=== PATIENT | female | born 1945 | race Caucasian/White ===

== ENCOUNTER 2017-10-01 11:23 | Observation (INO) | payer MEDICARE ==
[~2017-10-01] VITALS: Ht 154.9 cm; Wt 39.9 kg
[~2017-10-01 11:23] MED LIST: ACYCLOVIR 400400 MG PO; AZITHROMYCIN 2250 MG PO; BYSTOLIC 5 MG5 M1 PO; BYSTOLIC10 MG PO; CALCIUM 500 +1 EAC4 PO; CARDIZEM CD240 MG PO; HYDRALAZINE 2525 MG; HYDROXYZINE HCL25 M2 GT; IBUPROFEN 800800 M1 PO; LIDOCAINE 22 %/30 GM TOP; MIACALCIN3.7 ML; MOBIC7.5 M1 PO; MUCINEX600 MG PO; ONDANSETRON HCL4 M2 PO; PAXIL10 MG; PREDNISONE 20 M20 M1 PO; PREDNISONE50 MG PO; PROAIR HFA8.5 GM INH; SINGULAIR 10 MG10 M1 PO; SPIRONOLACT/HCT1 TA1 PO; SYNTHROID25 MC1 PO; TYLENOL W/CODEI1 TA2 PO; ULTRAM50 MG PO; VALIUM2 MG PO; WELLBUTRIN 100100 MG; ZOFRAN4 MG PO; ZPAK PO
[2017-10-01 11:29] VITALS: BP 152/78
[2017-10-01 11:55] LABS: ABSOLUTE EOSINOPHILS 0.1 thou/uL (0.0-0.7); ABSOLUTE LYMPHOCYTES 1.4 thou/uL (0.8-5.3); ABSOLUTE MONOCYTES 0.4 thou/uL (0.0-1.2); ABSOLUTE NEUTROPHILS 3.3 thou/uL (1.6-8.1); BASOPHILS 0.2 %; EOSINOPHILS 1.1 %; HEMATOCRIT 43.2 % (37.0-47.0); HEMOGLOBIN 14.7 gm/dL (12.0-15.0); LYMPHOCYTES 26.2 %; MCH 31.4 pg (26.0-34.0); MCV 92.3 fL (80.0-100.0); MONOCYTES 8.4 %; MPV 8.5 fl. (7.2-11.1); NUCLEATED RBCS 0 /100WBC; PLATELET COUNT* 230 thou/uL (150-400); POLYS 64.1 %; RBC 4.68 mil/uL (4.20-5.00); RDW-CV 13.5 % (10.5-14.5); WBC 5.2 thou/uL (4.0-11.0)
[2017-10-01 12:00] LABS: ANION GAP 7 mmol/L (7-16); BUN 7 mg/dL (7-18); CALCIUM 9.1 mg/dL (8.5-10.1); CHLORIDE 102 mmol/L (98-107); CO2 28 mmol/L (21-32); CREATININE 0.7 mg/dL (0.6-1.3); GLUCOSE 93 mg/dL (70-99); POTASSIUM 3.7 mmol/L (3.5-5.1); SODIUM 137 mmol/L (136-145)
[2017-10-01 12:09] LABS: APTT 27.3 Seconds (25.0-31.3); PROTIME 9.6 Seconds (9.20-11.50)
[2017-10-01 12:11] LABS: ALBUMIN 3.6 g/dL (3.4-5.0); ALKALINE PHOSPHATASE 99 U/L (46-116); NT-PRO BRAIN NAT PEPTIDE 49 pg/mL (<300); SGOT 20 U/L (15-37); SGPT 18 U/L (30-65); TOTAL BILIRUBIN 0.6 mg/dL (<0.1-1.0); TOTAL PROTEIN 6.7 g/dL (6.4-8.2); TROPONIN-I LEVEL <0.06 ng/mL (<0.06)
[2017-10-01] MEDS ORDERED: BEVESPI AEROS10.7 GM INH (12:33)
[2017-10-01 14:08] VITALS: BP 130/66
[2017-10-01 15:00] VITALS: BP 120/66
--- NOTE | 2017-10-01 16:05 | EKG ---
[place] [address] ELECTROCARDIOGRAM REPORT Name: KATE ANTONY Room: [address] ADM IN [facility]#: [id number] Admission: 10/01/17 Attend Phys: Lea Gonzalez MD Discharge: Date of : 41 Report #: [id number] THIS REPORT FOR: //name// [facility] ED Test Date: 2017-10-01 Test Time: 11:31:51 Pat Name: KATE ANTONY Department: Room: [facility] Gender: F Shipping/Receiving Manager: : 1945 Requested By: Dom Corley Order Number: [id number] MD: Bayron Calhoun Measurements Intervals [place] Rate: 76 P: 82 VT: 122 QRS: 99 QRSD: 142 T: 59 QT: 357 QTc: 402 Interpretive Statements Sinus tachycardia Ventricular trigeminy LAE, consider biatrial enlargement RBBB and LPFB Compared to ECG 05/21/2017 11:00:52 Ventricular premature complex(es) now present Electronically Signed On 10-01-2017 16:05:14 CDT by Bayron Calhoun [email or web address] <ELECTRONICALLY SIGNED> By: Bayron Calhoun MD, [facility] 10/01/17 1605 1131 1131 Bayron Calhoun MD, [facility] /EPI
--- NOTE | 2017-10-01 16:43 | 2DMMODE ---
[place] [address] 2 D/M-MODE ECHOCARDIOGRAM Name: KATE ANTONY Room: [address] IN [facility]#: [id number] Admission: 10/01/17 Attend Phys: Lea Gonzalez, Discharge: Date of : 41 Date of Service: 10/01/17 1643 Report #: [id number] THIS REPORT FOR: //name// APPROVED REPORT Study performed: 10/01/2017 13:57:44 EXAM: Comprehensive 2D, Doppler, and color-flow Echocardiogram Patient Location: In-Patient Room #: er Status: routine BSA: 1.33 HR: 82 bpm BP: 146/82 mmHg Rhythm: NSR Other Information Study Quality: Good Indications Bradycardia 2D Dimensions LVEF(%): 77.75 (>50%) IVSd: 9.71 (7-11mm) LVOT Diam: 19.39 (18-24mm) LVDd: 40.70 mm PWd: 8.57 (7-11mm) Ascending Ao: 27.64 (22-36mm) LVDs: 22.01 (25-40mm) Aortic Root: 34.16 mm Zepeda's LVEF: 77.75 % Volumes Left Atrial Volume (Systole) LA ESV Index: 25.10 mL/m2 Aortic Valve AoV Peak Mike.: 1.41 m/s AO Peak Gr.: 7.90 mmHg LVOT Max P.51 mmHg AO Mean Gr.: 3.37 mmHg LVOT Mean P.28 mmHg LVOT Max V: 1.17 m/s AO V2 VTI: 25.74 cm LVOT Mean V: 0.71 m/s JOSEPHINE (VTI): 2.59 cm2 LVOT V1 VTI: 22.56 cm Mitral Valve E/A Ratio: 0.76 [place] [address] 2 D/M-MODE ECHOCARDIOGRAM Name: KATE ANTONY Room: [address] IN [facility]#: [id number] Admission: 10/01/17 Attend Phys: Lea Gonzalez, Discharge: Date of : 41 Date of Service: 10/01/17 1643 Report #: [id number] MV Decel. Time: 159.99 ms MV E Max Mike.: 0.82 m/s MV PHT: 46.40 ms MVA (PHT): 4.74 cm2 TDI E/Lateral E': 8.20 E/Medial E': 8.20 Medial E' Mike.: 0.10 m/s Lateral E' Mike.: 0.10 m/s Pulmonary Valve PV Peak Mike.: 0.82 m/s PV Peak Gr.: 2.68 mmHg Tricuspid Valve TR Peak Gr.: 26.60 mmHg RVSP: 31.00 mmHg Left Ventricle The left ventricle is normal size. There is normal LV segmental wall motion. There is normal left ventricular wall thickness. Left ventricular systolic function is normal. The left ventricular ejection fraction is within the normal range. LVEF is 60-65%. Grade I - abnormal relaxation pattern. Right Ventricle The right ventricle is normal size. The right ventricular systolic function is normal. Atria The left atrium size is normal. The right atrium size is normal Aortic Valve Mild aortic valve sclerosis. No aortic regurgitation is present. There is no aortic valvular stenosis. Mitral Valve The mitral valve is normal in structure. Trace mitral regurgitation. No evidence of mitral valve stenosis. Tricuspid Valve The tricuspid valve is normal in structure. Trace tricuspid regurgitation. The RVSP is 30-35 mmHg. Pulmonic Valve The pulmonary valve is normal in structure. There is no pulmonic [place] [address] 2 D/M-MODE ECHOCARDIOGRAM Name: KATE ANTONY Room: [address] IN [facility]#: [id number] Admission: 10/01/17 Attend Phys: Lea Gonzalez, Discharge: Date of : 41 Date of Service: 10/01/17 1643 Report #: [id number] Great Vessels The aortic root is normal in size. IVC is normal in size and collapses with >50% inspiration Pericardium There is no pericardial effusion. <Conclusion> The left ventricle is normal size. There is normal left ventricular wall thickness. Left ventricular systolic function is normal. The left ventricular ejection fraction is within the normal range. LVEF is 60-65%. Grade I - abnormal relaxation pattern. The right ventricle is normal size. The left atrium size is normal. Mild aortic valve sclerosis. No aortic regurgitation is present. There is no aortic valvular stenosis. The mitral valve is normal in structure. Trace mitral regurgitation. The tricuspid valve is normal in structure. Trace tricuspid regurgitation. The RVSP is 30-35 mmHg. IVC is normal in size and collapses with >50% inspiration There is no pericardial effusion. There is normal LV segmental wall motion. <ELECTRONICALLY SIGNED> By: Bayron Calhoun MD, FACC 10/01/17 164 42 42 Bayron Calhoun MD, FACC /INF
--- NOTE | 2017-10-01 17:52 | NUR ---
RECEIVED PATIENT FROM ER 1500. PT IS ALERT AND ORIENTED X4. VSS. TRACK GRINDER TRACING SR. PATIENT DENIES SOA UPON ASSESSMENT. O2 SAT 93% ON ROOM AIR. UP INDEPENDENTLY IN ROOM WITH BATHROOM PRIVILEDGES. GAIT IS STEADY. ADMISSION ASSESSMENT AND HISTORY COMPLETED. HOME MEDICATIONS RECONCILED AND RESUMED PER DR SULLIVAN. PLANNING FOR NPO AFTER MIDNIGHT AND CARDIAC STRESS TEST TOMORROW PER CARDIOLOGY. PATIENT UP TO DATE ON PLAN OF CARE AND IS AGREEABLE. WILL CONTINUE TO MONITOR.
[2017-10-01 20:00] VITALS: BP 111/62
--- NOTE | 2017-10-01 20:00 | NUR ---
RECEIVED REPORT AND ASSUMED CARE OF PT, ASSESSMENT COMPLETED. DENIES SOB OR CHEST PAIN AT THIS TIME. TELEMETRY ON SHOWING SR TO ST. PT CONCERNED ABOUT STRESS INCONT WITH COUGHING, PADS PROVIDED. WILL CONT TO MONITOR AND ASSIST NEEDED.
[2017-10-02] VITALS: BP 93/42
[2017-10-02 04:00] VITALS: BP 104/49
[2017-10-02 04:53] LABS: HEMATOCRIT 37.7 % (37.0-47.0); HEMOGLOBIN 12.8 gm/dL (12.0-15.0); MCH 31.4 pg (26.0-34.0); MCHC 33.9 g/dL (28.0-37.0); MCV 92.6 fL (80.0-100.0); MPV 8.7 fl. (7.2-11.1); RBC 4.07 mil/uL (4.20-5.00); RDW-CV 13.4 % (10.5-14.5); WBC 4.4 thou/uL (4.0-11.0)
[2017-10-02 05:22] LABS: CREATININE 0.7 mg/dL (0.6-1.3); MAGNESIUM 1.8 mg/dL (1.8-2.4); POTASSIUM 3.5 mmol/L (3.5-5.1)
--- NOTE | 2017-10-02 05:43 | NUR ---
SLEPT WELL TONIGHT. NPO SINCE SC FOR STRESS TEST THIS AM. DENIES ANY CHEST PAIN OR SOB. ASSESSMENT UNCHANGED. TELEMETRY SHOWING SR. HS GOALS OF REST AND SAFETY OBTAINED. HOURLY ROUNDING OBSERVED.
[2017-10-02 08:06] VITALS: BP 115/55
[2017-10-02] MEDS ORDERED: DOXYCYCLINE 10100 MG PO (09:01)
[2017-10-02] MEDS ORDERED: CYCLOBENZAPRINE5 MG PO (09:08)
--- NOTE | 2017-10-02 09:48 | NUR ---
ASSUMED CARE OF PT THIS AM AROUND 07- [employer] [facility], TRACING SR- UPON ASSESSMENT PT NOTED TO BE RESTING IN BED, WATCHING TV- PT A&O X4- CONTINENT OF BOWEL AND BLADDER- UP AD-MOOSE IN ROOM WITH STEADY GAIT NOTED- LCTA, RESP EVEN AND UN-LABORED- VSS, O2 SAT 95% ON RA- ABDOMEN SOFT/FLAT/NON-TENDER, BS X4 QUADS- LAST BM REPORTED 10/01/17- IV NOTED TO RIGHT AC INTACT AND SL- PT CURRENTLY NPO FOR PLANNED STRESS TEST THIS AM- TROPS REMAIN NEGATIVE- PT DENIES ANY C/O PAIN/DISCOMFORT AT THIS TIME- CALL LIGHT AND PERSONAL BELONGINGS WITH IN REACH- HOURLY ROUNDS IN PLACE R/T SAFETY/NEEDS- ALL NEEDS MET AT THIS TIME-WCTM
[2017-10-02 11:39] VITALS: BP 115/55
--- NOTE | 2017-10-02 14:44 | NUR ---
RECIEVED PHONE CALL FROM THIS SHIFT STATING THAT STRESS TEST WAS NEGATIVE- L.CASE, SUPERVISOR FIREWORKS ASSEMBLY NOTIFIED AND STATES PT IS ABLE TO PHILIP D/C, WITH HOLTER MONITOR ARRANGED FOR HOME X 30 DAYS- PT UPDATED ON PLAN AND GOOD TO BE D/C'D TO HOME- IV TO RIGHT SC D/C'D ALONG WITH SIDE SEAM MACHINE OPERATOR THIS SHIFT PRIOR TO D/C- D/C TEACHING/EDUCATION GIVEN TO PT PRIOR TO D/C, WITH ALL QUESTIONS AND CONCERNS ADDRESSED- WRITTEN EDUCATION ALONG WITH SCRIPTS GIVEN TO PT PRIOR TO D/C- SCHEDULED FOLLOW UP WITH DATE AND TIME COMMUNICATED TO PT WITH CARD GIVEN, PT VERBALIZES UNDERSTANDING- HOLTOR MONITOR NEED COMMUNICATED THAT IT WOULD BE DELIVERED VIA MAIL WITH INSTRUCTIONS TO FOLLOW, PT VERBALIZES UNDERSTANDING- BELONGINGS PACKED AND ACCOUNTED FOR PER PT-PT FAUSTINOY RESTING IN BED SIDE CHAIR WAITING ON SISTER TO HEATER OPERATOR- ALL NEEDS MET AT THIS TIME-WCTM
--- NOTE | 2017-10-24 17:15 | CARDNUC ---
[place] [address] CARDIAC NUCLEAR IMAGING REPORT Name: KATE ANTONY Room: [address] Harish#: [id number] Admission: 10/01/17 Attend Phys: Lea Gonzalez, Discharge: 10/02/17 Date of : 41 Date of Service: 10/24/17 1715 Report #: [id number] THIS REPORT FOR: //name// ADDENDUM APPROVED REPORT Study performed: 10/01/2017 15:04:00 Exam: Nuclear Stress Test Indication: chest pain ,dyspnea Patient Location: In-Patient Room #: 201 Stress Tech: Gemma Summers Stress Nurse: Lesley Beck RN NM Tech:ERIKA Harrison Ht: 5 ft 1 in Wt: 88 lbs BSA: 1.33 m2 BMI: 16.6 Medical History Medical History: cardiac ablation for psvt, a fib with rvr, Medications: diltiazem, enoxaparin, aspirin 325 Allergies: baclofen, levaquin, morphine,phenothiazine, compazine, sulfa, spiriva,stadol, vicodin Cardiac Risk Factors: age, hyperlipidemia, htn, pvd, tobacco, family hx Previous Cardiac Procedures: heart cath, ablation Exercise History: Physically active NM EXAM: Myocardial Perfusion REST/STRESS Imaging Protocol: Rest Tc-99m/Stress Tc-99m 1 day Resting Data Rest SPECT myocardial perfusion imaging was performed in supine position 30 minutes following the intravenous injection of 11.9 mCi of Tc-99m Sestamibi. Time of rest injection: 1005 Time of rest imagin The images were gated to evaluate regional wall motion and calculate left ventricular ejection fraction. Administration Route: IV Pharmacologic Stress Pharmacologic stress test was performed by injecting Regadenoson 0.4 mg IV push followed by the intravenous injection of 33[place]3 [place] [address] CARDIAC NUCLEAR IMAGING REPORT Name: KATE ANTONY Room: [address] [facility]#: [id number] Admission: 10/01/17 Attend Phys: Lea Gonzalez, Discharge: 10/02/17 Date of : 41 Date of Service: 10/24/17 1715 Report #: [id number] Tc-99m Sestamibi. Time of stress injection: 1150 Time of stress imagin Administration Route: IV Gated Stress SPECT was performed 40 minutes after stress injection. The images were gated to evaluate regional wall motion and calculate left ventricular ejection fraction. Prone imaging was performed. Exercise Stress At peak stress, the patient was injected intravenously with 33.3mCi of Tc-99m Sestamibi. Study Quality Study: Good Artifact: Moderate Breast artifact Lung Uptake: Normal Study Data At rest, the left ventricular ejection fraction was 75%.. Post stress, the left ventricular ejection was 78%.. SSS: 0 SRS: 0 SDS: 0 TID = 1.18. Perfusion There is a moderate sized, mild intensity fixed anterior and anterolateral defect seen in SPECT rest and post-stress imaging datasets. Normal perfusion is seen in all other segments. Prone images show a relatively normal perfusion in all segments.There is a corresponding prominent breast shadow on rotating images. Images were reviewed using BT Imaging. Wall Motion normal Nuclear Conclusion ECG Findings: non-diagnostic Clinical Findings: negative for ischemia Nuclear Findings: negative for ischemia Exercise Capacity: normal Left Ventricular Function: normal Risk Study: low Normal [place] [address] CARDIAC NUCLEAR IMAGING REPORT Name: KATE ANTONY [address] [id number] Admission: 10/01/17 Attend Phys: Lea Gonzalez, Discharge: 10/02/17 Date of : 41 Date of Service: 10/24/17 1715 Report #: [id number] Interpreted by: amita Electronically Approved: amita Stress Test Details Stress Test: Pharmacologic stress was paired with low level exercise. Reason for pharmacologic stress test: physical limitation. HR Resting HR: 81 bpm Max Heart Rate (APMHR): 146 bpm Max HR Achieved: 126 bpm Target HR (85% APMHR): 124 bpm % of APMHR: 86 Recovery HR: 103 bpm BP Resting BP: 135/81 mmHg Max BP: 198/78 mmHg BP response to stress: Normal blood pressure response to stress. ECG Resting ECG: Sinus Rhythm RBBB Stress ECG: Sinus Rhythm ST Change: Normal Recovery ECG: rbbb Clinical Reason for Termination: Completed protocol Stress Symptoms: None Exercise duration: 0 min sec Exercise capacity: 1 METs Stress ECG Conclusion nondiag ecg <Conclusion> nondiag ecg <ELECTRONICALLY SIGNED> By: Justin Garcia MD, FACC 10/24/17 1715 1715 1715 Justin Garcia MD, FACC /INF
== END 2017-10-02 15:05 | disposition home or self-care (01) ==
LOC: M.ERS 11:23 → M.2W 12:55 → M.TBA-ER 12:55 → M.2W 14:41
PROVIDERS: Emergency Medicine Emergency Medical Services; ADMIT Internal Medicine
DX: R07.9 Chest pain, unspecified (principal); J18.9 Pneumonia, unspecified organism; J96.21 Acute and chronic respiratory failure with hypoxia; J44.0 Chronic obstructive pulmonary disease with (acute) lower respiratory infection; R00.1 Bradycardia, unspecified; F17.210 Nicotine dependence, cigarettes, uncomplicated; Z86.73 Personal history of transient ischemic attack (TIA), and cerebral infarction without residual deficits; Z98.890 Other specified postprocedural states

== ENCOUNTER → 2017-12-16 | Outpatient (CLI) | payer MEDICARE ==
[~2017-12-16] MED LIST changes: +BEVESPI AEROS10.7 GM INH; +CYCLOBENZAPRINE5 MG PO; +DOXYCYCLINE 10100 MG PO
== END ==
LOC: M.ULTRA 10:28
DX: I70.8 Atherosclerosis of other arteries (principal); I63.429 Cerebral infarction due to embolism of unspecified anterior cerebral artery; G45.9 Transient cerebral ischemic attack, unspecified; R55 Syncope and collapse

== ENCOUNTER → 2017-12-18 | Outpatient (CLI) | payer MEDICARE ==
[2017-12-18 09:56] LABS: ALBUMIN 3.5 g/dL (3.4-5.0); ALKALINE PHOSPHATASE 90 U/L (46-116); ANION GAP 8 mmol/L (7-16); BUN 6 mg/dL (7-18); CALCIUM 8.8 mg/dL (8.5-10.1); CHLORIDE 104 mmol/L (98-107); CHOLESTEROL 198 mg/dL (<200); CO2 30 mmol/L (21-32); CREATININE 0.6 mg/dL (0.6-1.3); GLUCOSE 93 mg/dL (70-99); HDL CHOLESTEROL 68 mg/dL (>40); LDL CHOLESTEROL 118 mg/dL (<100); POTASSIUM 3.5 mmol/L (3.5-5.1); SERUM ASSESSMENT Clear; SGOT 17 U/L (15-37); SGPT 17 U/L (30-65); SODIUM 142 mmol/L (136-145); TC:HDL 2.9 Ratio (Not establshd); TOTAL BILIRUBIN 0.5 mg/dL (<0.1-1.0); TOTAL PROTEIN 6.6 g/dL (6.4-8.2); TRIGLYCERIDE 62 mg/dL (<150); VLDL 12 mg/dL (<40)
== END ==
LOC: M.LAB 08:55
PROVIDERS: Nurse Practitioner
DX: I48.0 Paroxysmal atrial fibrillation (principal); E78.4 Other hyperlipidemia; Z72.0 Tobacco use

== ENCOUNTER 2018-08-27 23:17 | Inpatient (IN) | payer MEDICARE ==
[~2018-08-27] VITALS: Ht 154.9 cm; Wt 74.4 kg
--- NOTE | ~2018-08-27 | PROC ---
[address] [address] PROCEDURE REPORT Name: KATE ANTONY Room: [address] IN .R.#: [id number] Admission: 08/28/18 Attend Phys: Lea Gonzalez MD Discharge: Date of : 41 Report #: [id number] THIS REPORT FOR: //name// For GI report, please see the Provation report in Perceptive 7 content. By: [id number] Records Staff OJSSE /ROLF
[2018-08-27] MEDS ORDERED: XARELTO20 MG PO (23:29)
[2018-08-27] MEDS ORDERED: FLECAINIDE ACET50 M1 PO (23:29)
[2018-08-27 23:31] VITALS: BP 139/67
[2018-08-27 23:48] LABS: URINE BILIRUBIN NEGATIVE (Negative); URINE BLOOD NEGATIVE (Negative); URINE CLARITY CLEAR; URINE COLOR YELLOW; URINE GLUCOSE-RANDOM NEGATIVE (Negative); URINE KETONES NEGATIVE (Negative); URINE LEUKOCYTES-REFLEX NEGATIVE (Negative); URINE NITRITE-REFLEX NEGATIVE (Negative); URINE PROTEIN NEGATIVE (Negative); URINE UROBILINOGEN 0.2 E.U./dl (0.2-1.0)
[2018-08-28] VITALS (7 sets, daily range): BP systolic 94–122; BP diastolic 38–57
[2018-08-28 00:01] LABS: ABSOLUTE BASOPHILS 0.1 thou/uL (0.0-0.2); ABSOLUTE EOSINOPHILS 0.1 thou/uL (0.0-0.7); ABSOLUTE LYMPHOCYTES 1.5 thou/uL (0.8-5.3); ABSOLUTE MONOCYTES 0.8 thou/uL (0.0-1.2); ABSOLUTE NEUTROPHILS 7.8 thou/uL (1.6-8.1); BASOPHILS 0.7 %; EOSINOPHILS 0.9 %; HEMATOCRIT 24.4 % (37.0-47.0); HEMOGLOBIN 7.8 gm/dL (12.0-15.0); LYMPHOCYTES 14.8 %; MCH 23.2 pg (26.0-34.0); MCHC 32.2 g/dL (28.0-37.0); MONOCYTES 7.5 %; MPV 6.8 fl. (7.2-11.1); NUCLEATED RBCS 0 /100WBC; PLATELET COUNT* 512 thou/uL (150-400); POLYS 76.1 %; RBC 3.39 mil/uL (4.20-5.00); RDW-CV 18.1 % (10.5-14.5); WBC 10.3 thou/uL (4.0-11.0)
[2018-08-28 00:06] LABS: INR 1.1; PROTIME 11.4 Seconds (9.20-11.50)
[2018-08-28 00:24] LABS: ALBUMIN 3.4 g/dL (3.4-5.0); ALKALINE PHOSPHATASE 100 U/L (46-116); ANION GAP 6 mmol/L (7-16); BUN 10 mg/dL (7-18); CALCIUM 8.6 mg/dL (8.5-10.1); CHLORIDE 95 mmol/L (98-107); CO2 30 mmol/L (21-32); CREATININE 0.6 mg/dL (0.6-1.3); GLUCOSE 104 mg/dL (70-99); LIPASE 235 U/L (73-393); NT-PRO BRAIN NAT PEPTIDE 192 pg/mL (<300); POTASSIUM 3.3 mmol/L (3.5-5.1); SGOT 10 U/L (15-37); SGPT 15 U/L (30-65); SODIUM 131 mmol/L (136-145); TOTAL BILIRUBIN 0.2 mg/dL (<0.1-1.0); TOTAL PROTEIN 6.3 g/dL (6.4-8.2); TROPONIN-I LEVEL <0.06 ng/mL (<0.06)
[2018-08-28 02:53] LABS: % SATURATION 2 % (20-39); IRON 9 ug/dL (50-175)
--- NOTE | 2018-08-28 04:44 | NUR ---
pt admitted to unit with dyspnea and anemia. pt is alert and oriented. pt is on 2 liters o2 by nasal cannula. pt spo2, 99%. breathing tx ordered q4 prn for shortness of air. pt up ad darlene. no wounds noted. pt hgb 7.8, pt has questions on if receiving blood transfusion tonight, told pt none ordered at this time. pt has lt fa iv saline locked. pt regular diet with secondary diet of vegetarian. fall risk precautions in place. hourly rounding completed. will continue to monitor.
[2018-08-28 09:12] LABS: HEMATOCRIT 24.4 % (37.0-47.0); HEMOGLOBIN 7.7 gm/dL (12.0-15.0); MCH 22.6 pg (26.0-34.0); MCHC 31.5 g/dL (28.0-37.0); MCV 71.8 fL (80.0-100.0); RBC 3.4 mil/uL (4.20-5.00); RDW-CV 18.5 % (10.5-14.5); WBC 6.2 thou/uL (4.0-11.0)
[2018-08-28 09:13] LABS: MPV 7.2 fl. (7.2-11.1)
[2018-08-28 09:16] LABS: CALCIUM 8.5 mg/dL (8.5-10.1); CREATININE 0.6 mg/dL (0.6-1.3)
[2018-08-28 09:22] LABS: POTASSIUM 2.9 mmol/L (3.5-5.1)
--- NOTE | 2018-08-28 14:14 | NUR ---
SW met with pt to complete initial assessment, introduce self, and SW role. Pt alert, oriented, pleasant. Pt lives with her sister. Pt has been independent and continues to work. Pt did not express any dc needs at this time. SW to remain available to assist with safe dc planning if needs arise.
--- NOTE | 2018-08-28 14:14 | NUR ---
PT TRANSFERRED FROM [facility] TO [facility] FLOOR AT 1300. REPORT RECEIVED FROM NURSE NESS. PT IS AOX4 VSS , SR PACS BBB ON ELECTRIC GAS APPLIANCES DEMONSTRATOR. ON O2 2 L NC AND SATURATION IN 99%. PT IS TO RECEIVE BLOOD TRANSFUSION FOR HGB 7.7. BLOOD PICKED UP FROM LAB AND STARTED AT 1330. SEE CHARTING. VSS MEASURED WITHIN 15 MINUTES OF BLOOD TRANSFUSION. SEE CHART. BLOOD TO BE INFUSED OVER 3 HOURS. POTASSIUM REPLACEMENT GIVEN TO PT AT 1330. WILL RECHECK LEVEL. WILL CONTINUE TO MONITOR PT
--- NOTE | 2018-08-28 14:40 | NUR ---
PT ALERT AND ORIENTED X 4. IVF INFUSING. DENIES PAIN AND NAUSEA. OXYGEN @ 2 L/NC. UP WITH SBA X 1. CRITICAL POTASSIUM LEVEL OF 2.9. PHYSICIAN INFORMED AND POTASSIUM REPLACEMENT PO PER PROTOCOL. HOURLY ROUNDS MAINTAINED. PT TRANSFER TO ROOM # 206 TELEMETRY @ 1245 BY WHEEL CHAIR.
--- NOTE | 2018-08-28 16:43 | NUR ---
third dose of k given. blood transfusion done at 1630. vs recorded. see chart pt stable
--- NOTE | 2018-08-28 19:14 | NUR ---
HEMOGLOBIN WITHDRAW ORDERED NOW AT 1914. K WITHDRAW ORDERED WELL
[2018-08-28 19:42] LABS: HEMATOCRIT 25.5 % (37.0-47.0); HEMOGLOBIN 8.3 gm/dL (12.0-15.0)
--- NOTE | 2018-08-29 02:38 | NUR ---
ASSESSMENT COMPLETED CHARTED. VSS. IVF INFUSING ORDERED. TRACING SR WITH OCCASIONAL PAC'S ON MONITOR. PT DENIES PAIN, C/O FATIGUE. PT DENIES ANY FURTHER NEEDS AT THIS TIME. HOURLY ROUNDING FOR SAFETY. CLWR.
[2018-08-29 03:45] VITALS: BP 138/82
--- NOTE | 2018-08-29 05:31 | NUR ---
PT ALEPT SOME THIS NOC SHIFT. PT DENIES PAIN. TRACING SR WITH PAC'S ON MONITOR. VSS. IVF INFUSING ORDERED. HOURLY ROUNDING IN PLACE FOR SAFETY. CLWR.
[2018-08-29 07:21] LABS: HEMATOCRIT 25.5 % (37.0-47.0); HEMOGLOBIN 8.2 gm/dL (12.0-15.0); MCH 24.1 pg (26.0-34.0); MCHC 32.3 g/dL (28.0-37.0); MCV 74.6 fL (80.0-100.0); MPV 6.9 fl. (7.2-11.1); RBC 3.41 mil/uL (4.20-5.00); WBC 3.7 thou/uL (4.0-11.0)
[2018-08-29 07:30] LABS: CALCIUM 8.2 mg/dL (8.5-10.1); CREATININE 0.6 mg/dL (0.6-1.3); MAGNESIUM 1.9 mg/dL (1.8-2.4); POTASSIUM 4.2 mmol/L (3.5-5.1)
[2018-08-29 08:25] VITALS: BP 112/53
--- NOTE | 2018-08-29 10:15 | NUR ---
REC'D REPORT FROM NOC RN, ASSUMED CARE OF PT APPROX 0730. A&OX4, ABLE TO COMMUNICATE NEEDS TO STAFF. ASSESSMENT COMPLETED, VS OBTAINED. CHIEF PHYSICAL THERAPIST IN PLACE, SR. O2 SATS 92% RA. UP AD MOOSE. CALL LIGHT WITHIN REACH. HOURLY ROUNDING FOR SAFETY AND PT NEEDS.
[2018-08-29 12:00] VITALS: BP 113/37
[2018-08-29 16:00] VITALS: BP 138/67
--- NOTE | 2018-08-29 16:33 | EKG ---
[place] [address] ELECTROCARDIOGRAM REPORT Name: KATE ANTONY Room: [address] ADM IN .R.#: [id number] Admission: 08/28/18 Attend Phys: Lea Gonzalez MD Discharge: Date of : 41 Report #: [id number] THIS REPORT FOR: //name// [facility] ED Test Date: 2018-08-28 Test Time: 00:22:41 Pat Name: KATE ANTONY Department: Room: [facility] Gender: F Thread Spinner: : 1945 Requested By: Elida Baez Order Number: [id number] MD: Justin Garcia Measurements Intervals [place] Rate: 82 P: 88 ID: 155 QRS: 93 QRSD: 143 T: 72 QT: 403 QTc: 471 Interpretive Statements Sinus rhythm with sinus arrhythmia Atrial premature complex Left atrial enlargement RBBB and LPFB Anteroseptal infarct, age indeterminate, possible Compared to ECG 10/01/2017 11:31:51 Atrial premature complex(es) now present Myocardial infarct finding now present Sinus tachycardia no longer present Ventricular premature complex(es) no longer present Electronically Signed On 08-29-2018 16:32:58 HYDRO PNEUMATIC TESTER by Justin Garcia [email or web address] <ELECTRONICALLY SIGNED> By: Justin Garcia MD, [facility] 08/29/18 1632 Justin Garcia MD, [facility] /EPI
[2018-08-29 20:00] VITALS: BP 123/63
[2018-08-30] VITALS: BP 146/66
--- NOTE | 2018-08-30 03:45 | NUR ---
ASSUMED PT CARE AT APPROX 1930. PT AWAKE AND ORIENTED X4. VSS ON ROOM AIR. DENIES ANY PAIN NOR DISCOMFORT. TECHNICIAN HELPER INSTRUMENT IN PLACE TRACING SR. ASSESSMENT COMPLETED AND CHARTED. FOR EGD/COLONOSCOPY ON Thursday. ONGOING BOWEL PREP, WELL TOLERATED. ABLE TO PASS CLUMPY LIQUID STOOLS THIS AM. CALL LIGHT WITHIN REACH. HOURLY ROUNDING DONE FOR PT SAFETY.
[2018-08-30 04:00] VITALS: BP 158/65
[2018-08-30 05:15] LABS: HEMATOCRIT 26.4 % (37.0-47.0); HEMOGLOBIN 8.5 gm/dL (12.0-15.0); MCHC 32.2 g/dL (28.0-37.0); MCV 74.5 fL (80.0-100.0); MPV 7.2 fl. (7.2-11.1); NUCLEATED RBCS 0 /100WBC; PLATELET COUNT* 440 thou/uL (150-400); RBC 3.54 mil/uL (4.20-5.00); RDW-CV 18.7 % (10.5-14.5); WBC 9.9 thou/uL (4.0-11.0)
[2018-08-30 05:56] LABS: CALCIUM 9.1 mg/dL (8.5-10.1); CREATININE 0.6 mg/dL (0.6-1.3); MAGNESIUM 2.2 mg/dL (1.8-2.4); POTASSIUM 3.7 mmol/L (3.5-5.1)
[2018-08-30 06:43] LABS: ABSOLUTE LYMPHOCYTES 0.9 thou/uL (0.8-5.3); ABSOLUTE MONOCYTES 1.1 thou/uL (0.0-1.2); ABSOLUTE NEUTROPHILS 7.9 thou/uL (1.6-8.1); PLATELET ESTIMATE INCREASED
[2018-08-30 06:45] LABS: HYPOCHROMASIA 2+; MICROCYTES 2+; TARGET CELLS 1+
[2018-08-30 08:00] VITALS: BP 130/68
--- NOTE | 2018-08-30 11:05 | NUR ---
ASSUMED PT CARE AT 0715 REPORT RECEIVED FROM NURSE. PT IS AOX4 SR ON AGILE TEST LEAD. UP AD MOOSE TO RESTROOM. NO COMPLAINT .VSS/ REFUSED TO BE GIVEN NORMAL SALINE STATING THAT IT GOT HER SWOLLEN. MEDICATIONS GIVEN ORDERED. PT IS TO START BOWEL PREP AT 1300. NOW HAVING FREQUENT LIQUID STOOL DUE TO MAG CITRATE RECEIVED LAST NIGHT. BARRIER CREAM PROVIDED FOR HER BUTTOCKS. WILL CONTINUE TO MONITOR PT
[2018-08-30 12:00] VITALS: BP 142/67
--- NOTE | 2018-08-30 14:41 | NUR ---
GOLYTELY GIVEN TO PT AT 1300A ORDERED PER DR GIFFORD. SOLUTION NOT SCANNED BECAUSE IT HAD ALREADY BEEN SCANNED BUT NOT GIVEN YESTERDAY. PT IS ELIMINATING WELL SO FAR.
--- NOTE | 2018-08-30 18:18 | NUR ---
BOWEL PREP STARTED AT 1300 PT IS TOLORATING WELL. LIQUID STOOL MOSTLY CLEAR NOTICED. NO IV FLUID INFUSING PT REFUSED SINCE THIS AM. WILL CONTINUE TO MONITOR
[2018-08-30 20:00] VITALS: BP 137/73
[2018-08-31] VITALS: BP 131/69
--- NOTE | 2018-08-31 04:29 | NUR ---
ASSUMED CARE OF PT AFTER REPORT AT 1930. PT A&OX4. VSS. PHYSICAL ASSESSMENT COMPLETED AND CHARTED. PT ON RA WITH 100% O2 SAT. PT ON MEDSURG STATUS STATUS. PT UP ADLIB TO RESTROOM. INSTRUCTED ON NPO POST MIDNIGHT FOR EGD & COLONOSCOPY TODAY. COMMUNICATES UNDERSTANDING. DENIES ANY PAIN OR SOA. CALL LIGHT WITHIN REACH.
[2018-08-31 05:43] LABS: HEMATOCRIT 23.9 % (37.0-47.0); HEMOGLOBIN 7.7 gm/dL (12.0-15.0); MCH 23.8 pg (26.0-34.0); MCHC 32.1 g/dL (28.0-37.0); MCV 74.1 fL (80.0-100.0); MPV 7.2 fl. (7.2-11.1); RBC 3.23 mil/uL (4.20-5.00); RDW-CV 19.7 % (10.5-14.5); WBC 9.4 thou/uL (4.0-11.0)
[2018-08-31 06:05] LABS: CALCIUM 8.6 mg/dL (8.5-10.1); CREATININE 0.6 mg/dL (0.6-1.3); MAGNESIUM 1.9 mg/dL (1.8-2.4); POTASSIUM 3.4 mmol/L (3.5-5.1)
[2018-08-31 08:38] VITALS: BP 130/60
--- NOTE | 2018-08-31 10:38 | NUR ---
RECEIVED REPORT FROM LEAF SORTER NURSE AND ASSUMED CARE OF PT AT 0740.PT IS A/OX4.VSS AND NO COMPLAINTS OF PAIN,NO SKIN ISSUES .IV PATENT AND SALINE LOCKED .PT IS NPO FOR EGD/COLONOSCOPY.HOURLY ROUNDING DONE.CALL LIGHT AND FALL PRECAUTIONS IN PLACE FOR SAFETY.PT IS UP AD MOOSE.WILL CONTINUE TO MONITOR
[2018-08-31 15:54] VITALS: BP 115/53
--- NOTE | 2018-08-31 17:01 | NUR ---
VSS.NO COMPLAINTS OF PAIN.COLONSCOPY/EGD DONE TODAY.HEART HEALTHY DIET RESUMED.IV PATENT AND SALINE LOCKED.HOLD XARELTO X 5 DAYS PER GI.PT INFORMED OF PLAN OF CARE AND COMMUNICATES UNDERSTANDING.HOURLY ROUNDING FOR SAFETY.CALL LIGHT AND FALL PRECAUTIONS IN PLACE.WILL CONTINUE TO MONITOR FOR THE REST OF THE SHIFT.
--- NOTE | 2018-08-31 17:13 | NUR ---
THIS NURSE REVIEWED MAMIE HEDRICK'S PM NOTE AND AGREES.
[2018-08-31 20:00] VITALS: BP 123/64
[2018-08-31] MEDS ORDERED: BENADRYL25 MG PO (22:31)
[2018-09-01] VITALS: BP 116/49
[2018-09-01 05:09] LABS: HEMATOCRIT 23.3 % (37.0-47.0); HEMOGLOBIN 7.6 gm/dL (12.0-15.0)
--- NOTE | 2018-09-01 05:42 | NUR ---
ASSUMED CARE OF PT AFTER REPORT AT 1930. PT A&OX4. VSS. PHYSICAL ASSESSMENT COMPLETED AND CHARTED. PT ON RA WITH 93% O2 SAT. PT ON MEDSURG STATUS. PT UPADLIB TO RESTROOM. PT REQUESTED TO RESUME HER BENADRYL TO HELP HER SLEEP- DR ANDRADE INFORMED WITH NEW ORDER. DENIES ANY PAIN OR SOA. CALL LIGHT WITHIN REACH. BED IN LOW POSITION.
[2018-09-01 08:01] VITALS: BP 153/68
[2018-09-01] MEDS ORDERED: NEXIUM40 MG PO (08:20)
[2018-09-01] MEDS ORDERED: COLACE100 MG PO (08:22)
[2018-09-01] MEDS ORDERED: FEOSOL325 M1 PO (08:22)
[2018-09-01] MEDS ORDERED: MIRALAX17 GM PO (08:22)
[2018-09-01] MEDS ORDERED: PREDNISONE 10 M10 MG PO (08:25)
[2018-09-01] MEDS ORDERED: DIFLUCAN100 MG PO (08:25)
--- NOTE | 2018-09-01 09:54 | NUR ---
RECEIVED REPORT FROM NIGHT NURSE VINNY.ASSUMED CARE OF PT AT 0730.PT IS A/OX4.UP AD MOOSE. VSS,PT COMPLAINS OF CRAMPS IN BILATERAL LEGS.IV PATENT AND SALINE LOCKED.CLEAR LUNGS SOUNDS,NO SKIN ISSUES.PT IS IN HEART HEALTHY DIET.CALL LIGHT AND FALL PRECAUTION IN PLACE.WILL CONTINUE TO MONITOR.
--- NOTE | 2018-09-01 10:09 | NUR ---
THIS NURSE REVIEWED [facility]ENN[facility]ER GALLEGOS'S CHARTING AND AM NOTE AND AGREES.
--- NOTE | 2018-09-01 10:38 | NUR ---
THIS NURSE REVIEWED ORIENTEE NURSE HEDRICK'S CHARTING AND AM NOTE AND AGREES.
[2018-09-01] MEDS ORDERED: POTASSIUM20 PO (10:59)
[2018-09-01 11:52] VITALS: BP 153/68
[2018-09-01 12:00] VITALS: BP 146/56
--- NOTE | 2018-09-01 13:15 | NUR ---
PT OK FOR DISCHARGE.PAPER WORK COMPLETED AND GIVEN TO PT.SCRIPTS GIVEN WITH EDUCATION.IV REMOVED.ALL PERSONAL BELONGING PACKED AND TAKEN WITH PT.PT WAITING IN ROOM FOR RIDE.
--- NOTE | 2018-09-01 13:19 | NUR ---
THIS NURSE REVIEWED ORIENTEE NURSE HEDRICK'S DISCHARGE NOTE AND AGREES.
[2018-09-02] MEDS ORDERED: ALBUTEROL2.5 MG/31 INH (03:27)
[2018-09-02] MEDS ORDERED: LASIX 20 MG TAB20 MG PO (08:23)
--- NOTE | 2018-09-03 15:27 | PATH ---
[address] [address] PATHOLOGY RPT PROCEDURE Name: TAMERA HANCOCK Room: [address] IN .R.#: [id number] Admission: 08/28/18 Date of : 41 Discharge: 09/01/18 Report #: [id number] Path Case #: [id number] [facility] Accession Number: [id number] . 01 Material submitted: . PART A: SMALL BOWEL BIOPSY FOR IRON DEFICIENT ANEMIA PART B: PROXIMAL TRANSVERSE COLON POLYP PART C: MID-TRANSVERSE COLON POLYP PART D: DISTAL TRANSVERSE COLON POLYP . 01 Clinical history: . None provided . 02 Diagnosis: A. Small bowel biopsy: - Normal small intestinal mucosa. . B. Proximal transverse colon polyp: - Tubular adenoma, negative for high-grade dysplasia. . C. Mid transverse colon polyp: - Tubular adenoma, negative for high-grade dysplasia. . D. Distal transverse colon polyp: - Tubular adenoma, negative for high-grade dysplasia. (AMY:pit 09/01/2018) QTP/09/01/2018 . 02 Electronically signed: . Alan Cordero MD, Pathologist NPI- [id number] . 01 Gross description: . A. Received in formalin labeled "Tamera Hancock, small bowel biopsy for iron deficiency anemia," are 3 segments of prasad soft tissue measuring 0.7 x 0.6 x 0.2 cm in aggregate dimensions and ranging from 0.2 to 0.6 cm in maximum dimension. The specimen is submitted entirely in cassette A1. . B. Received in formalin labeled "Tamera Hancock, proximal transverse colon polyp," is a single segment of prasad soft tissue measuring 0.3 cm in maximum dimension. The specimen is entirely submitted in cassette B1. . C. Received in formalin labeled "Tamera Hancock, mid-transverse colon polyp," are multiple segments of prasad soft tissue measuring 1.8 x 0.5 x 0.2 cm in aggregate dimensions. The specimen is filtered and entirely submitted in cassette C1. . D. Received in formalin labeled "Tamera Hancock, [place] [address] PATHOLOGY RPT PROCEDURE Name: TAMERA HANCOCK LEESA Room: [address] IN .R.#: [id number] Admission: 08/28/18 Date of : 41 Discharge: 09/01/18 Report #: [id number] Path Case #: [id number] polyp," are 2 segments of prasad soft tissue measuring 0.7 x 0.3 x 0.3 cm in aggregate dimensions and ranging from 0.3 to 0.4 cm in maximum dimension. The specimen is submitted entirely in cassette D1. (TSD; 08/31/2018) TOB/TOB . 02 Pathologist provided ICD-10: D12.3, R06.00 . 02 CPT . 107288, 311832, 884028, 072386 Specimen Comment: Report sent to ,DR SULLIVAN / DR THOMAS Specimen Comment: A duplicate report has been generated due to demographic updates. Performed at: [address], [place] [id number] MD Alfredito Stanford MD Phone: [phone] Performed at: 02 [facility] [address], [place], [place] [id number] MD Alan Cordero MD Phone: [phone]
--- NOTE | 2018-09-04 09:57 | CON ---
[address] [address] CONSULTATION Name: KATE ANTONY Room: [address] IN M.R.#: [id number] Admission: 08/28/18 Attend Phys: Lea Gonzalez MD Discharge: 09/01/18 Date of : 41 Report #: [id number] THIS REPORT FOR: //name// CC: Gaetano Boyd MD [facility] Lea Roland DO DATE OF SERVICE: 08/28/2018 REFERRING PHYSICIAN: Dr. Lea Gonzalez. REASON FOR CONSULTATION: 1. Iron deficient anemia of uncertain etiology -- evaluate for upper and lower GI tract sources for the same. 2. Intermittent dysphagia and odynophagia of uncertain significance. 3. Worsening constipation without any overt bleeding. 4. History of colon polyps with last examination being performed in 2003 -- the patient was sent a letter in 2009 requesting that she get a repeat colonoscopy, but has not done so. 5. Chronic obstructive pulmonary disease exacerbation. 6. Chronic atrial fibrillation requiring chronic Xarelto. RECOMMENDATIONS: 1. Because of her tendency towards constipation, I would like to give her a bowel preparation over the next couple of days and proceed with upper and lower endoscopy this Thursday late morning. This will also give us time for the Xarelto to be out of her system, so that if she needs to have dilation, we can proceed with the same. 2. We will hold off on placing her on any oral iron replacement at this time. 3. I have discussed the plans with the patient as well and she is agreeable to the same. 4. Because the patient is a vegan, this may be one of the reasons why she is low on iron, but we need to evaluate for occult sources of GI blood loss within the upper and lower GI tract. 5. She will likely need to be on B12 supplementation as well because her B12 level is on the low end of normal at 216. I have discussed the plan with the patient as well and she is agreeable to the same. HISTORY OF PRESENT ILLNESS: The patient is a pleasant 73-year-old white female with underlying COPD and chronic atrial fibrillation, on chronic anticoagulation, who was admitted to the hospital because of problems with shortness of breath and difficulty breathing. She was found to have COPD exacerbation. In addition, her hemoglobin had been in the 12-gram range and is now down into the 7-gram range with microcytic indices [place] [address] CONSULTATION Name: KATE ANTONY Room: [address]#: [id number] Admission: 08/28/18 Attend Phys: Lea Gonzalez MD Discharge: 09/01/18 Date of : 43 Report #: [id number] deficiency anemia. Her ferritin was only 3 and her B12 level 216. She has had some problems intermittently with dysphagia, mostly with vegetables and it will be difficult for her to swallow and she will have some discomfort with the same. However, when she swallows, everything will be fine. She denies any problem heartburn or indigestion. The patient is not taking nonsteroidals. She has had a problem with fullness, but also has problem with constipation with tendency towards same recently. This has ever been since she has been on diltiazem. Her stools have become more difficult. She has a history of irritable bowel with diarrhea predominance in the past and saw me back in the early 1999 times from the same period. She has not been seen in our office since 2003, at which time she had a colonoscopy with polyps removed. I do not have those records, but I did review records that indicate that I personally sent her a letter in 03/2010 asking her to contact her office to schedule a surveillance colonoscopy. She is admitted to hospital now for further rash treatment. FAMILY HISTORY: She has no known family history of any colon polyps or colon cancer. ALLERGIES: Multiple and include LEVOFLOXACIN, MORPHINE, PHENOTHIAZINES, PROCHLORPERAZINE, SULFA, STADOL, VICODIN and COMPAZINE. MEDICATIONS: At home include diltiazem, Xarelto, Tambocor, Synthroid and Mucinex. She is also supposed to be on inhalers including Singulair, ProAir, calcium with vitamin D and a glycopyrrolate formoterol inhaler as well. PAST MEDICAL AND SURGICAL HISTORY: Remarkable for hypertension and atrial fibrillation for which she is on chronic Xarelto. She has hypothyroidism, COPD with continued tobacco use. She had previous appendectomy, hysterectomy, inguinal hernia repair. She has a personal history of colon polyps as well. SOCIAL HISTORY: She smokes half pack per day, done so for 45+ years, not drinking alcohol. FAMILY HISTORY: Negative. PHYSICAL EXAMINATION: GENERAL: The patient is a 73-year-old slightly white female who is awake and alert. CARDIOPULMONARY EXAMINATION: Revealed a regular rhythm with some wheezes. ABDOMEN: Soft, not tender. No rebound or guarding noted. CT scan of the abdomen and pelvis were reviewed and did not show any obvious abnormalities. LABORATORY DATA: From admission revealed a white count of 6.2, hemoglobin 7.7, platelet count 428,000, MCV is 71.8 and RDW is 18.5. Her protime is 11.[address] [address] CONSULTATION Name: KATE ANTONY Room: [address] IN M.R.#: [id number] Admission: 08/28/18 Attend Phys: Lea Gonzalez MD Discharge: 09/01/18 Date of : 41 Report #: [id number] an INR of 1.1. Sodium is 134, potassium 2.9, chloride 99, bicarbonate is 32. Her BUN is 7, creatinine is 0.6. Her GFR is 97. Her iron saturation is only 2%, ferritin is 3. Her B12 level is 216. Her bilirubin is 0.2, alkaline phosphatase is 100, AST 10, ALT 15, her albumin is 3.4. By comparison, her laboratory test in September of last year revealed a white count of 4.4, hemoglobin 12.8, platelet count of 204,000. Her MCV at that time was 92.6. DISCUSSION: At the present time, the patient has iron deficiency anemia. It appeared it certainly could be related to her vegan diet, but we need to rule out GI sources of blood loss. I have discussed the plans with the patient as well and she is agreeable to the same. <ELECTRONICALLY SIGNED> By: Leopoldo Chong DO 09/04/18 0957 [id number] [id number] Chong DO /rosita
== END 2018-09-01 13:20 | disposition home or self-care (01) | DRG 189 ==
LOC: M.ERS 23:17 → M.2W 08-28 01:31 → M.TBA-ER 08-28 01:31 → M.ORTHSURG 08-28 02:18 → M.2W 08-28 12:59
PROVIDERS: Emergency Medicine; Internal Medicine; Internal Medicine Gastroenterology; ADMIT Internal Medicine
PROC: 30233N1 Transfusion of Nonautologous Red Blood Cells into Peripheral Vein, Percutaneous Approach (ICD-10-PCS; principal; 2018-08-28)
PROC: 0W3P8ZZ Control Bleeding in Gastrointestinal Tract, Via Natural or Artificial Opening Endoscopic (ICD-10-PCS; 2018-08-31)
PROC: 0DB88ZX Excision of Small Intestine, Via Natural or Artificial Opening Endoscopic, Diagnostic (ICD-10-PCS; 2018-08-31)
PROC: 0DBE8ZZ Excision of Large Intestine, Via Natural or Artificial Opening Endoscopic (ICD-10-PCS; 2018-08-31)
DX: J96.01 Acute respiratory failure with hypoxia (principal); J44.1 Chronic obstructive pulmonary disease with (acute) exacerbation; B37.81 Candidal esophagitis; K57.30 Diverticulosis of large intestine without perforation or abscess without bleeding; K31.819 Angiodysplasia of stomach and duodenum without bleeding; M81.0 Age-related osteoporosis without current pathological fracture; I11.0 Hypertensive heart disease with heart failure; I50.9 Heart failure, unspecified; Z96.641 Presence of right artificial hip joint; K59.00 Constipation, unspecified; E87.6 Hypokalemia; D50.9 Iron deficiency anemia, unspecified; K44.9 Diaphragmatic hernia without obstruction or gangrene; K63.5 Polyp of colon; E03.9 Hypothyroidism, unspecified; I48.2 Chronic atrial fibrillation; F17.210 Nicotine dependence, cigarettes, uncomplicated; M41.9 Scoliosis, unspecified; Z86.73 Personal history of transient ischemic attack (TIA), and cerebral infarction without residual deficits; Z98.82 Breast implant status; Z90.710 Acquired absence of both cervix and uterus; Z85.41 Personal history of malignant neoplasm of cervix uteri; Z88.2 Allergy status to sulfonamides; Z88.5 Allergy status to narcotic agent; Z88.8 Allergy status to other drugs, medicaments and biological substances; Z88.6 Allergy status to analgesic agent; Z79.01 Long term (current) use of anticoagulants; Z90.49 Acquired absence of other specified parts of digestive tract

== ENCOUNTER 2018-09-01 20:58 | Observation (INO) | payer MEDICARE ==
[~2018-09-01] VITALS: Ht 154.9 cm; Wt 41.7 kg
[~2018-09-01 20:58] MED LIST changes: +BENADRYL25 MG PO; +COLACE100 MG PO; +DIFLUCAN100 MG PO; +FEOSOL325 M1 PO; +FLECAINIDE ACET50 M1 PO; +MIRALAX17 GM PO; +NEXIUM40 MG PO; +POTASSIUM20 PO; +PREDNISONE 10 M10 MG PO; +XARELTO20 MG PO
[2018-09-01 21:12] VITALS: BP 158/72
[2018-09-01 21:34] LABS: HEMATOCRIT 28.5 % (37.0-47.0); MCH 23.6 pg (26.0-34.0); MCHC 31.7 g/dL (28.0-37.0); MCV 74.3 fL (80.0-100.0); RDW-CV 20.4 % (10.5-14.5); WBC 9.3 thou/uL (4.0-11.0)
[2018-09-01 21:36] LABS: NUCLEATED RBCS 0 /100WBC; PLATELET COUNT* 445 thou/uL (150-400); RBC 3.83 mil/uL (4.20-5.00)
[2018-09-01 21:46] LABS: APTT 22.3 Seconds (25.0-31.3); PROTIME 10.3 Seconds (9.20-11.50)
[2018-09-01 21:51] LABS: ANION GAP 5 mmol/L (7-16); BUN 13 mg/dL (7-18); CALCIUM 9.3 mg/dL (8.5-10.1); CHLORIDE 102 mmol/L (98-107); CO2 31 mmol/L (21-32); CREATININE 0.6 mg/dL (0.6-1.3); GLUCOSE 108 mg/dL (70-99); POTASSIUM 3.5 mmol/L (3.5-5.1); SODIUM 138 mmol/L (136-145); TROPONIN-I LEVEL <0.06 ng/mL (<0.06)
[2018-09-01 21:53] LABS: ALBUMIN 3.4 g/dL (3.4-5.0); ALKALINE PHOSPHATASE 93 U/L (46-116); NT-PRO BRAIN NAT PEPTIDE 919 pg/mL (<300); SGOT 13 U/L (15-37); SGPT 21 U/L (30-65); TOTAL BILIRUBIN 0.2 mg/dL (<0.1-1.0); TOTAL PROTEIN 6.4 g/dL (6.4-8.2)
[2018-09-01 21:59] LABS: ABSOLUTE LYMPHOCYTES 0.8 thou/uL (0.8-5.3); ABSOLUTE MONOCYTES 0.3 thou/uL (0.0-1.2); ABSOLUTE NEUTROPHILS 8.2 thou/uL (1.6-8.1); ANISOCYTOSIS 2+; HYPOCHROMASIA 1+; MICROCYTES 1+; OVALOCYTES 1+; PLATELET ESTIMATE INCREASED; POIKILOCYTOSIS 1+; POLYCHROMASIA 1+; SCHISTOCYTES 1+; TARGET CELLS Occasional; TEARDROPS Occasional
[2018-09-01 22:21] LABS: URINE BILIRUBIN NEGATIVE (Negative); URINE BLOOD NEGATIVE (Negative); URINE CLARITY CLEAR; URINE COLOR YELLOW; URINE GLUCOSE-RANDOM NEGATIVE (Negative); URINE KETONES NEGATIVE (Negative); URINE LEUKOCYTES-REFLEX NEGATIVE (Negative); URINE NITRITE-REFLEX NEGATIVE (Negative); URINE PROTEIN NEGATIVE (Negative); URINE UROBILINOGEN 0.2 E.U./dl (0.2-1.0)
[2018-09-02 00:40] VITALS: BP 118/69
[2018-09-02 00:45] VITALS: BP 128/64
[2018-09-02] MEDS ORDERED: ALBUTEROL2.5 MG/31 INH (03:27)
[2018-09-02 04:00] VITALS: BP 127/68
[2018-09-02 08:00] VITALS: BP 135/77
[2018-09-02 08:19] LABS: CALCIUM 9.3 mg/dL (8.5-10.1); CREATININE 0.6 mg/dL (0.6-1.3); POTASSIUM 3.1 mmol/L (3.5-5.1)
[2018-09-02] MEDS ORDERED: LASIX 20 MG TAB20 MG PO (08:23)
[2018-09-02 10:18] VITALS: BP 135/77
--- NOTE | 2018-09-02 11:19 | EKG ---
[place] [address] ELECTROCARDIOGRAM REPORT Name: KATE ANTONY Room: [address] M.R.#: [id number] Admission: 09/01/18 Attend Phys: Kory Goodrich MD Discharge: Date of : 41 Report #: [id number] THIS REPORT FOR: //name// [facility] [place] [facility] Test Date: 2018-09-01 Test Time: 21:40:26 Pat Name: KATE ANTONY Department: Room: [facility] Gender: F Turning Sander Tender: BUNNY : 1945 Requested By: Vivian Elizalde Order Number: [id number] MD: Justin Garcia Measurements Intervals [place] Rate: 84 P: 84 TN: 136 QRS: 96 QRSD: 140 T: 49 QT: 399 QTc: 472 Interpretive Statements Sinus rhythm Biatrial enlargement RBBB and LPFB Artifact in lead(s) I,aVR,aVL,V1,V2,V3,V4,V5,V6 Compared to ECG 08/28/2018 00:22:41 Sinus arrhythmia no longer present Atrial premature complex(es) no longer present Myocardial infarct finding no longer present thank you Electronically Signed On 09-02-2018 11:19:27 MIXER OPERATOR TABLETS by Justin Garcia [email or web address] <ELECTRONICALLY SIGNED> By: Justin Garcia MD, [facility] 09/02/18 1119 39 39 Justin Garcia MD, [facility] /EPI
== END 2018-09-02 12:00 | disposition home or self-care (01) ==
LOC: M.ERS 20:58 → M.TBA-ER 23:44 → M.2W 23:44
PROVIDERS: Personal Emergency Response Attendant; ADMIT Internal Medicine
DX: R60.9 Edema, unspecified (principal); T38.0X5A Adverse effect of glucocorticoids and synthetic analogues, initial encounter; D50.9 Iron deficiency anemia, unspecified; J44.1 Chronic obstructive pulmonary disease with (acute) exacerbation; I10 Essential (primary) hypertension; E03.9 Hypothyroidism, unspecified; I48.91 Unspecified atrial fibrillation; R91.1 Solitary pulmonary nodule; E87.6 Hypokalemia; R10.9 Unspecified abdominal pain; I99.8 Other disorder of circulatory system; Z79.899 Other long term (current) drug therapy

== ENCOUNTER → 2018-10-18 | Outpatient (CLI) | payer MEDICARE ==
[~2018-10-18] MED LIST changes: +ALBUTEROL2.5 MG/31 INH; +LASIX 20 MG TAB20 MG PO
[2018-10-18 09:02] LABS: ABSOLUTE BASOPHILS 0.1 thou/uL (0.0-0.2); ABSOLUTE EOSINOPHILS 0.1 thou/uL (0.0-0.7); ABSOLUTE MONOCYTES 0.4 thou/uL (0.0-1.2); ABSOLUTE NEUTROPHILS 3.1 thou/uL (1.6-8.1); BASOPHILS 1.3 %; EOSINOPHILS 1.4 %; HEMATOCRIT 38.2 % (37.0-47.0); HEMOGLOBIN 12.4 gm/dL (12.0-15.0); LYMPHOCYTES 20.7 %; MCH 27.7 pg (26.0-34.0); MCHC 32.4 g/dL (28.0-37.0); MCV 85.4 fL (80.0-100.0); MONOCYTES 9.3 %; NUCLEATED RBCS 0 /100WBC; PLATELET COUNT* 346 thou/uL (150-400); POLYS 67.3 %; RBC 4.47 mil/uL (4.20-5.00); RDW-CV 26.8 % (10.5-14.5); WBC 4.7 thou/uL (4.0-11.0)
[2018-10-18 09:35] LABS: PLATELET ESTIMATE ADEQUATE
[2018-10-18 09:36] LABS: HYPOCHROMASIA 1+; OVALOCYTES 1+; TARGET CELLS 1+
[2018-10-18 09:37] LABS: ANISOCYTOSIS 1+; MACROCYTES 1+; MICROCYTES 1+; POIKILOCYTOSIS 1+; SCHISTOCYTES 1+
[2018-10-18 10:42] LABS: ESR (SEDRATE) 7 mm/hr (0-30)
== END ==
LOC: M.LAB 08:45
PROVIDERS: Internal Medicine Gastroenterology
DX: D50.9 Iron deficiency anemia, unspecified (principal)

== ENCOUNTER → 2018-11-11 | Outpatient (CLI) | payer MEDICARE ==
[~2018-11-11] MED LIST changes: +CEFDINIR300 MG PO; +LIPITOR10 MG PO; +MAGOX 400400 MG PO
== END ==
LOC: M.RAD 10-25 09:00
DX: D50.9 Iron deficiency anemia, unspecified (principal)

== ENCOUNTER 2018-11-12 03:18 | Inpatient (IN) | payer MEDICARE ==
[~2018-11-12] VITALS: Ht 154.9 cm; Wt 32.2 kg
[~2018-11-12 03:18] MED LIST changes: -CEFDINIR300 MG PO; -LIPITOR10 MG PO; -MAGOX 400400 MG PO
[2018-11-12 03:19] VITALS: BP 142/67
[2018-11-12] MEDS ORDERED: LIPITOR10 MG PO (03:33)
[2018-11-12] MEDS ORDERED: MAGOX 400400 MG PO (03:34)
[2018-11-12 04:00] LABS: ABSOLUTE LYMPHOCYTES 1.2 thou/uL (0.8-5.3); ABSOLUTE MONOCYTES 0.6 thou/uL (0.0-1.2); ABSOLUTE NEUTROPHILS 7.4 thou/uL (1.6-8.1); BASOPHILS 0.4 %; EOSINOPHILS 0.2 %; HEMATOCRIT 38.8 % (37.0-47.0); HEMOGLOBIN 12.6 gm/dL (12.0-15.0); LYMPHOCYTES 12.9 %; MCH 28.5 pg (26.0-34.0); MCHC 32.6 g/dL (28.0-37.0); MCV 87.4 fL (80.0-100.0); MONOCYTES 6.5 %; MPV 7.8 fl. (7.2-11.1); NUCLEATED RBCS 0 /100WBC; PLATELET COUNT* 237 thou/uL (150-400); RBC 4.44 mil/uL (4.20-5.00); RDW-CV 20.7 % (10.5-14.5); WBC 9.3 thou/uL (4.0-11.0)
[2018-11-12 04:06] LABS: APTT 35.9 Seconds (25.0-31.3); INR 1.1; PROTIME 11.3 Seconds (9.20-11.50)
[2018-11-12 04:13] LABS: ANION GAP 5 mmol/L (7-16); BUN 9 mg/dL (7-18); CALCIUM 8.8 mg/dL (8.5-10.1); CHLORIDE 100 mmol/L (98-107); CO2 31 mmol/L (21-32); CREATININE 0.7 mg/dL (0.6-1.3); GLUCOSE 121 mg/dL (70-99); POTASSIUM 3.9 mmol/L (3.5-5.1); SODIUM 136 mmol/L (136-145); TROPONIN-I LEVEL <0.06 ng/mL (<0.06)
[2018-11-12 04:14] LABS: ALBUMIN 3.5 g/dL (3.4-5.0); ALKALINE PHOSPHATASE 88 U/L (46-116); LIPASE 136 U/L (73-393); MAGNESIUM 1.7 mg/dL (1.8-2.4); NT-PRO BRAIN NAT PEPTIDE 91 pg/mL (<300); SGOT 18 U/L (15-37); SGPT 18 U/L (30-65); TOTAL BILIRUBIN 0.4 mg/dL (<0.1-1.0); TOTAL PROTEIN 6.5 g/dL (6.4-8.2)
[2018-11-12 04:30] VITALS: BP 131/58
[2018-11-12 04:45] VITALS: BP 135/67
[2018-11-12] MEDS ORDERED: POTASSIUM20 PO (05:41)
--- NOTE | 2018-11-12 06:23 | NUR ---
RECEIVED REPORT AND ASSUMED CARE AT 0435. PT TRANSPORTED FROM ED TO ROOM 209. PT ORIENTATED TO ROOM CALL LIGHT, FALL POLICY. PT DENIES COMPLAINTS OF PAIN, PT UP AD MOOSE IN ROOM, ON 2L NC. ASSESSMENT COMPLETED CHARTED, ADMISSION COMPLETED BY NURSING. BED LOCKED IN LOWEST POSITION, CALL LIGHT WITHIN REACH. HOURLY ROUNDING COMPLETED AND ALL NEEDS MET
[2018-11-12 07:21] LABS: PLATELET ESTIMATE ADEQUATE
[2018-11-12 07:22] LABS: ANISOCYTOSIS 1+; OVALOCYTES 1+; POIKILOCYTOSIS 1+
[2018-11-12 12:37] VITALS: BP 130/65
--- NOTE | 2018-11-12 13:11 | NUR ---
Nutrition: pt assessed for low BMI. Admit w/ SOA, hx of COPD. Pt reports not eating as much for past couple of month due to feeling bloated. Pt denied wt loss from UBW 88 lb. Pt declined supplements stating if she drinks them then she doesn't want to eat. Albumin WNL. Pt assessed at mild nutrition risk.
--- NOTE | 2018-11-12 15:02 | NUR ---
Pt is A&O. Resides at home with sister. Active and independent. Pt has a home neb. No hx of HH or SNF. Goal is home at ia. Following
[2018-11-12 16:11] VITALS: BP 111/49
--- NOTE | 2018-11-12 16:35 | EKG ---
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1945 Requested By: Alex Melchor Order Number: [id number] MD: Maurice Durham Measurements Intervals [place] Rate: 116 P: 97 WY: 47 QRS: 139 QRSD: 161 T: 72 QT: 425 QTc: 591 Interpretive Statements Sinus tachycardia Multiform ventricular premature complexes Short WY interval Right atrial enlargement Nonspecific intraventricular conduction delay Borderline ST depression, anterior leads Compared to ECG 09/01/2018 21:40:26 Ventricular premature complex(es) now present Short WY interval now present Intraventricular conduction delay now present Electronically Signed On 11-12-2018 16:35:47 CDT by Maurice Durham [email or web address] <ELECTRONICALLY SIGNED> By: Maurice Durham MD, FAC 11/12/18 1635 6 0327 Maurice Durham MD, [facility] /EPI
--- NOTE | 2018-11-12 17:32 | NUR ---
PT TOLERATED AMVUALTING IN ROOM WELL AND REMAINS ON 2L NC. PT TOLERATING DIET AND PLAM OF CARE.
[2018-11-12 19:10] VITALS: BP 128/63
[2018-11-13] VITALS (7 sets, daily range): BP systolic 100–142; BP diastolic 45–60
--- NOTE | 2018-11-13 05:21 | NUR ---
RECEIVED REPORT AND ASSUMED CARE AT 1900. VSS. CARDIAC MONITORING IN PLACE. PT DENIES COMPLAINTS OF PAIN. ASSESSMENT COMPLETED CHARTED. PT REPORTS FEELING BETTER THAN WHEN SHE CAME IN BUT STILL SOA WITH EXERTION. PT UP AD MOOSE IN ROOM, ON 2L NC. MEDICATION ADMIN PER EMAR. BED LOCKED IN LOWEST POSITION, CALL LIGHT WITHIN REACH, HOURLY ROUNDING COMPLETED AND ALL NEEDS MET.
[2018-11-13 05:44] LABS: HEMATOCRIT 34.7 % (37.0-47.0); HEMOGLOBIN 11.5 gm/dL (12.0-15.0); MCH 28.4 pg (26.0-34.0); MCHC 33.1 g/dL (28.0-37.0); MCV 85.7 fL (80.0-100.0); MPV 8.2 fl. (7.2-11.1); NUCLEATED RBCS 0 /100WBC; PLATELET COUNT* 232 thou/uL (150-400); RBC 4.05 mil/uL (4.20-5.00); RDW-CV 21.2 % (10.5-14.5); WBC 7.9 thou/uL (4.0-11.0)
[2018-11-13 05:48] LABS: CALCIUM 9.1 mg/dL (8.5-10.1); CREATININE 0.6 mg/dL (0.6-1.3)
[2018-11-13 08:11] LABS: ABSOLUTE LYMPHOCYTES 0.3 thou/uL (0.8-5.3); ABSOLUTE MONOCYTES 0.1 thou/uL (0.0-1.2); ABSOLUTE NEUTROPHILS 7.5 thou/uL (1.6-8.1)
[2018-11-13 08:12] LABS: ANISOCYTOSIS 2+; OVALOCYTES Occasional; PLATELET ESTIMATE ADEQUATE
[2018-11-13 08:16] LABS: BURR CELLS 1+
--- NOTE | 2018-11-13 17:27 | NUR ---
PT AMBULATED HALLS TODAY AND VISITED WITH FAMILY AT BEDSIDE. REMAINS ON 2LNC.
[2018-11-14 03:50] VITALS: BP 127/54
--- NOTE | 2018-11-14 04:44 | NUR ---
PT CARE ASSUMED AT 1930. SAT MAINTAINED IN OH. ALERT AND ORIENTED X4. CALL LIGHT WITHIN REACH AND BED IN LOW POSITION. DENIES PAIN. HOURLY ROUNDING DONE FOR PT SAFETY.
[2018-11-14 07:50] VITALS: BP 120/52
[2018-11-14] MEDS ORDERED: SINGULAIR 10 MG10 M1 PO (08:37)
[2018-11-14] MEDS ORDERED: PREDNISONE 10 M10 MG PO (08:37)
[2018-11-14] MEDS ORDERED: AZITHROMYCIN 2250 MG PO (08:37)
[2018-11-14] MEDS ORDERED: CEFDINIR300 MG PO (08:37)
--- NOTE | 2018-11-14 11:40 | EKG ---
[place] [address] ELECTROCARDIOGRAM REPORT Name: KATE ANTONY Room: [address] ADM IN .R.#: [id number] Admission: 11/12/18 Attend Phys: Hector Savage MD Discharge: Date of : 41 Report #: [id number] THIS REPORT FOR: //name// 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[facility] : 1945 Requested By: Kory Goodrich Order Number: [id number] Reading MD: Maurice Durham Measurements Intervals [place] Rate: 79 P: 84 ID: 150 QRS: 105 QRSD: 156 T: 43 QT: 423 QTc: 486 Interpretive Statements Sinus rhythm RBBB and LPFB Compared to ECG 11/12/2018 03:27:40 Left posterior fascicular block now present Right bundle-branch block now present Sinus tachycardia no longer present Ventricular premature complex(es) no longer present Short ID interval no longer present Atrial abnormality no longer present Intraventricular conduction delay no longer present ST (T wave) deviation no longer present Electronically Signed On 11-14-2018 11:40:40 CDT by Maurice Durham [email or web address] <ELECTRONICALLY SIGNED> By: Maurice Durham MD, [facility] 11/14/18 1140 5 5 Maurice Durham MD, [facility] /EPI
[2018-11-14 11:42] VITALS: BP 120/52
[2018-11-14 12:08] VITALS: BP 144/71
--- NOTE | 2018-11-14 12:45 | NUR ---
OXYGEN ORDERS,DOCUMENTATION AND RX SENT TO [facility]. SPOKE TO CARTER AT [facility]. TANK TO BE DELIVERED TO HOSPITAL
== END 2018-11-14 13:54 | disposition home or self-care (01) | DRG 177 ==
LOC: M.ERS 03:18 → M.2W 04:05 → M.TBA-ER 04:05 → M.2W 04:24
PROVIDERS: Family Medicine; ADMIT Internal Medicine
DX: J15.6 Pneumonia due to other Gram-negative bacteria (principal); J96.21 Acute and chronic respiratory failure with hypoxia; J44.0 Chronic obstructive pulmonary disease with (acute) lower respiratory infection; J44.1 Chronic obstructive pulmonary disease with (acute) exacerbation; I48.91 Unspecified atrial fibrillation; F17.210 Nicotine dependence, cigarettes, uncomplicated; R91.1 Solitary pulmonary nodule; Z88.6 Allergy status to analgesic agent; Z88.1 Allergy status to other antibiotic agents; Z88.2 Allergy status to sulfonamides; Z88.8 Allergy status to other drugs, medicaments and biological substances; Z79.899 Other long term (current) drug therapy; Z90.89 Acquired absence of other organs; Z90.710 Acquired absence of both cervix and uterus; Z79.01 Long term (current) use of anticoagulants

== ENCOUNTER → 2019-01-28 | Outpatient (CLI) | payer MEDICARE ==
[~2019-01-28] MED LIST changes: +CEFDINIR300 MG PO; +LIPITOR10 MG PO; +MAGOX 400400 MG PO
[2019-01-28 12:48] LABS: ABSOLUTE BASOPHILS 0.1 thou/uL (0.0-0.2); ABSOLUTE LYMPHOCYTES 1.2 thou/uL (0.8-5.3); ABSOLUTE MONOCYTES 0.4 thou/uL (0.0-1.2); BASOPHILS 1.1 %; EOSINOPHILS 0.8 %; HEMATOCRIT 38.7 % (37.0-47.0); HEMOGLOBIN 12.9 gm/dL (12.0-15.0); LYMPHOCYTES 26.3 %; MCH 29.7 pg (26.0-34.0); MCHC 33.4 g/dL (28.0-37.0); MCV 88.8 fL (80.0-100.0); MONOCYTES 8.8 %; MPV 7.6 fl. (7.2-11.1); NUCLEATED RBCS 0 /100WBC; PLATELET COUNT* 276 thou/uL (150-400); RBC 4.36 mil/uL (4.20-5.00); RDW-CV 15.4 % (10.5-14.5); WBC 4.7 thou/uL (4.0-11.0)
[2019-01-28 13:00] LABS: ALBUMIN 3.5 g/dL (3.4-5.0); CREATININE 0.7 mg/dL (0.6-1.3); POTASSIUM 3.7 mmol/L (3.5-5.1); TOTAL BILIRUBIN 0.4 mg/dL (<0.1-1.0); TOTAL PROTEIN 6.3 g/dL (6.4-8.2)
[2019-01-28 13:50] LABS: ESR (SEDRATE) 8 mm/hr (0-30)
== END ==
LOC: M.LAB 12:30
PROVIDERS: Internal Medicine Gastroenterology
DX: K29.80 Duodenitis without bleeding (principal)

== ENCOUNTER → 2019-02-15 | Outpatient (CLI) | payer MEDICARE ==
--- NOTE | 2019-02-17 08:29 | PF ---
[address] [address] PULMONARY FUNCTION REPORT Name: KATE ANTONY Room: [facility].#: [id number] Admission: 02/15/19 Attend Phys: Jaxson Toscano Discharge: Date of : 41 Report #: [id number] THIS REPORT FOR: //name// CC: Marissa Ross DO DATE OF SERVICE: 02/15/2019 ATTENDING PHYSICIAN: Fransico Ross DO A 73-year-old female with cough and shortness of air. Full PFTs are indicated. Spirometry demonstrates severe obstructive defect. Mild improvement after single dose of inhaled bronchodilator was noted with 12-16% improvement noted. Severe decrease in small airways disease also noted. FEV1 is 0.75 and FVC of 1.85, ratio is 41%, FEV1 is 41% of predicted. Mid flow rates are diminished at 8 and 45% of predicted with minimal bronchodilator response. Markedly hyperinflated on lung volumes performed by plethysmography, TLC 112% of predicted and RV 158% of predicted. Diffusion is markedly diminished at 64% of predicted. IMPRESSION: Abnormalities suggest very severe obstructive airways disease with mild bronchodilator response, increased hyperinflation with increased RV to TLC is noted with subsequent decrease in DLCO. <ELECTRONICALLY SIGNED> By: Daniel Moreno MD 02/17/19 0829 1048 MD rachel Hernandez
== END ==
LOC: M.PUL 02-01 11:00
DX: R91.1 Solitary pulmonary nodule (principal); J44.9 Chronic obstructive pulmonary disease, unspecified

== ENCOUNTER 2019-08-21 13:02 | Inpatient (IN) | payer MEDICARE ==
[~2019-08-21] VITALS: Ht 154.9 cm; Wt 40.8 kg
--- NOTE | ~2019-08-21 | CON ---
[address] [address] CONSULTATION Name: KATE ANTONY Room: [address] IN M.R.#: [id number] Admission: 08/21/19 Attend Phys: Cooper Miller Discharge: Date of : 41 Report #: [id number] THIS REPORT FOR: //name// cc: Fransico Ross Vincent R. DO ~ THIS REPORT FOR: //name// CC: Fransico Martin DATE OF SERVICE: 08/22/2019 HEMATOLOGY CONSULT NOTE HISTORY OF PRESENT ILLNESS: The patient is being seen in consultation at the request of the hospitalist for consideration of iron replacement with intravenous source of iron. 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 The patient reports that she had been anemic intermittently all of her adult life. This has never been a major problem for her until 2018. 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 In the past, she has tried oral iron, but it reveals severe constipation, and she has never previously received intravenous iron. Recently, the patient denies spontaneous bleeding from all sites including no spontaneous epistaxis, gum bleeding, hemoptysis, hematemesis, hematuria, vaginal bleeding, hematochezia and she has not had any melena. She has not had any fever, rigors or drenching sweats and she has not had any recent weight loss. She has developed progressive shortness of breath, and this is occurring on top of previous diagnosis of COPD. The patient has had COPD for approximately 10 years. She is a smoker of approximately 1 pack of cigarettes or less per day for all of her adult life, and she is still smoking some now. She uses oxygen at night only at home at 2 liters per minute, but it is at 3 liters per minute when she exerts herself. She has a clear cough productive of clear sputum, but she denies hemoptysis, recent chest pain, but she has had greater fatigue and increasing shortness of breath. No one in her family has a history of AVMs. One of her 2 sisters did develop CLL, but there were no other people who have hematologic problems. 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 Tobacco, see the [place]. FAMILY HISTORY: The patient had two sisters, no brothers, no half siblings. See additional [place] information. REVIEW OF SYSTEMS: Negative for any recent headaches, sudden episodes of visual loss. No purulent or watery nasal discharge, no sores in her mouth. She has minimal swallowing difficulties. No intestinal cramps. She is right handed, has arthralgias in both hips and the sacrum. PHYSICAL EXAMINATION: GENERAL: Reveals alert, pleasant lady in no acute distress. She is accompanied by her daughter who stayed in room during the entire encounter. 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 HEENT: Pupils were equal. Sclerae were nonicteric. Extraocular movements were intact without nystagmus. Nasal passages were clear. Oropharynx reveals upper and lower dentures in place. Mucous membranes were red and mouth was somewhat dry. She had no buccal purpura or thrush. Her voice quality was normal. NECK: She had no cervical lymphadenopathy and there was no thyromegaly or JVD. Right carotid was diminished. There was no thrill in the left carotid. It was full. She had no supraclavicular, infraclavicular, axillary or inguinal adenopathy. Posterior thorax did not reveal any worrisome skin lesions or subcutaneous nodules. Overall, she had decreased muscle bulk. CHEST: Air movement sounds are diminished in all lung perry. Her cough was "bronchitic" on command, but she produced no sputum. Anteriorly, breast implants were not examined. CARDIOVASCULAR: Cardiac rate and rhythm were normal. I did not hear evidence of previous identified atrial fibrillation. There is no murmur. GASTROINTESTINAL: Her abdomen was examined while she was in supine position with the knees and hips flexed. She had no tenderness, masses, or ascites. No detectable hepatosplenomegaly tested by palpation or percussion. MEDICAL DATA: From 08/21/2019, I reviewed the Emergency Room note by Dr. Elizalde. From 08/22/2019, I reviewed the history and physical by Neel Montoya DO. From 08/22/2019, I reviewed the gastrointestinal progress note by Ms. Rob, there was a statement that the patient had [place] [address] CONSULTATION Name: KATE ANTONY Room: [address] IN [facility]#: [id number] Admission: 08/21/19 Attend Phys: Cooper Miller Discharge: Date of : 41 Report #: [id number] and proximal colonic AVMs and were treated with APC. From 08/22/2019, I reviewed Dr. Lua's progress note. From [id number], electrolytes reveal potassium of 2.6, but the other electrolytes are normal, BUN 9, creatinine 0.9, completely normal liver function studies. Albumin is low at 3.0, total protein 5.7. Serum iron low at 17 with a TIBC of 429 resulting in a calculated iron saturation of 2. Ferritin was low at 3 ng/mL (8-388). Vitamin B12 level was low normal at 216 picograms per mL (193-986). Note that ferritin had been measured on 3 separate occasions on 08/27/2018, 10/18/2018, and 01/28/2019; it was 3, 20 and 12 respectively. From 01/28/2019, most recent CBC in this hospital prior to the current admission showed a hemoglobin of 12.9. The patient has received 3 units of packed red blood cells. She has p.o. iron intolerance, and I think it is perfectly legitimate to give intravenous iron. I did forewarn her that there can be rare allergic reaction, some of which have resulted in fatalities, fortunately I am not aware of any that have occurred in the hospital or in our own hospital. I phoned the pharmacy and found out the benefits to preferred IV salt. 200 mg is the starting dose. I told her that there were different iron preparations could replenish her iron stores more rapidly, but this will need to be done in the outpatient setting, and I believe Dr. Veras will follow her. By: [id number] Anand MD /nt
[2019-08-21 13:02] VITALS: BP 114/34
[~2019-08-21 13:02] MED LIST changes: +CARDIZEM CD240 M1 PO; -CARDIZEM CD240 MG PO
[2019-08-21] MEDS ORDERED: PROAIR HFA8.5 GM INH (13:08)
[2019-08-21] MEDS ORDERED: FLOVENT DISKU250 MCG INH (13:09)
[2019-08-21 13:31] LABS: MCH 18.8 pg (26.0-34.0); WBC 9.4 thou/uL (4.0-11.0)
[2019-08-21 13:33] LABS: MCHC 31.5 g/dL (28.0-37.0); MCV 59.8 fL (80.0-100.0); MPV 7.1 fl. (7.2-11.1); NUCLEATED RBCS 0 /100WBC; PLATELET COUNT* 485 thou/uL (150-400); RDW-CV 18.6 % (10.5-14.5)
[2019-08-21 13:39] LABS: CREATININE 0.8 mg/dL (0.6-1.3); HEMATOCRIT 16.2 % (37.0-47.0); HEMOGLOBIN 5.1 gm/dL (12.0-15.0)
[2019-08-21 13:43] LABS: MAGNESIUM 1.7 mg/dL (1.8-2.4); TOTAL BILIRUBIN 0.2 mg/dL (<0.1-1.0); TOTAL PROTEIN 5.7 g/dL (6.4-8.2)
[2019-08-21 13:44] LABS: POTASSIUM 2.6 mmol/L (3.5-5.1)
[2019-08-21 13:57] LABS: ABSOLUTE LYMPHOCYTES 0.8 thou/uL (0.8-5.3); ABSOLUTE MONOCYTES 0.3 thou/uL (0.0-1.2); ABSOLUTE NEUTROPHILS 8.3 thou/uL (1.6-8.1); HYPOCHROMASIA 3+
[2019-08-21 13:58] LABS: ANISOCYTOSIS 3+; MICROCYTES 3+; PLATELET ESTIMATE ADEQUATE
[2019-08-21 14:16] LABS: URINE BILIRUBIN NEGATIVE (Negative); URINE BLOOD NEGATIVE (Negative); URINE CLARITY CLEAR; URINE COLOR YELLOW; URINE GLUCOSE-RANDOM NEGATIVE (Negative); URINE KETONES NEGATIVE (Negative); URINE LEUKOCYTES-REFLEX NEGATIVE (Negative); URINE NITRITE-REFLEX NEGATIVE (Negative); URINE PROTEIN NEGATIVE (Negative); URINE UROBILINOGEN 0.2 E.U./dl (0.2-1.0)
[2019-08-21 15:35] VITALS: BP 100/42
[2019-08-21 16:00] VITALS: BP 101/38
[2019-08-21 16:34] VITALS: BP 101/51; BP 102/41; BP 106/46; BP 107/42; BP 111/47
[2019-08-21 19:50] VITALS: BP 107/42
[2019-08-21] MEDS ORDERED: DALIRESP500 MCG PO (20:10)
[2019-08-21] MEDS ORDERED: SERTRALINE HCL25 MG PO (20:11)
[2019-08-21] MEDS ORDERED: SERTRALINE HCL100 MG PO (20:11)
[2019-08-21] MEDS ORDERED: XARELTO20 MG PO (20:12)
[2019-08-21] MEDS ORDERED: ACETAMINOPHEN500 M1 PO (20:14)
[2019-08-21] MEDS ORDERED: BEVESPI AEROS10.7 GM INH (20:17)
--- NOTE | 2019-08-21 20:20 | NUR ---
PATIENT AWAKE IN BED. LOW AIR LOSS MATTRESS ORDERED. PATIENT UP TO COMMODE ONCE THIS EVENING. VOID UNMEASURED. ALL SAFETY MEASURES MAITNAINED. PATIENT'S FAMILY IN ROOM. PATIENT REQUESTED PCP NOTIFIED OF ADMISSION. US GONZALEZ NOTIFIED ANSWERING SERVICE AND SPOKE WITH RICKY FOR DR. WILEY. DR. HURST NOTIFIED OF PATIENT'S COMPLAINTS OF PAIN. NEW ORDERS RECEIVED AND VERIFIED WITH READ BACK. PATIENT DENIES FURTHER NEEDS AT THIS TIME.
[2019-08-21 21:30] VITALS: BP 101/51; BP 110/42; BP 110/49; BP 126/48; BP 132/67; BP 134/56
[2019-08-22 04:38] LABS: ALBUMIN 3.2 g/dL (3.4-5.0); CALCIUM 7.6 mg/dL (8.5-10.1); CREATININE 0.6 mg/dL (0.6-1.3); MAGNESIUM 1.6 mg/dL (1.8-2.4); TOTAL BILIRUBIN 0.5 mg/dL (<0.1-1.0); TOTAL PROTEIN 5.8 g/dL (6.4-8.2)
[2019-08-22 04:39] LABS: % SATURATION 4 % (20-39); IRON 17 ug/dL (50-175)
[2019-08-22 04:58] LABS: HEMATOCRIT 24.4 % (37.0-47.0); MCH 22.6 pg (26.0-34.0); MCHC 32.9 g/dL (28.0-37.0); MPV 7.5 fl. (7.2-11.1); NUCLEATED RBCS 0 /100WBC; PLATELET COUNT* 411 thou/uL (150-400); RBC 3.55 mil/uL (4.20-5.00); WBC 9.1 thou/uL (4.0-11.0)
[2019-08-22 04:59] LABS: MCV 68.8 fL (80.0-100.0)
[2019-08-22 05:05] LABS: POTASSIUM 2.7 mmol/L (3.5-5.1)
[2019-08-22 05:31] LABS: ABSOLUTE EOSINOPHILS 0.4 thou/uL (0.0-0.7); ABSOLUTE LYMPHOCYTES 1.1 thou/uL (0.8-5.3); ABSOLUTE MONOCYTES 0.5 thou/uL (0.0-1.2); ABSOLUTE NEUTROPHILS 7.2 thou/uL (1.6-8.1); PLATELET ESTIMATE INCREASED
[2019-08-22 05:32] LABS: HYPOCHROMASIA 2+; LARGE PLATELETS OCCASIONAL; MICROCYTES 2+; OVALOCYTES 1+; SCHISTOCYTES 1+; TARGET CELLS Occasional
[2019-08-22 05:33] LABS: ANISOCYTOSIS 2+; POIKILOCYTOSIS 2+
--- NOTE | 2019-08-22 07:31 | NUR ---
PT ALERT AND ORIENTED. VSS ON 2L NC. MEDS GIVEN PER EMAR. ELYTES REPLACED. K+ STILL CRITICAL TODAY. PER DR HURST GIVE 20MEQ PO K+ TID. PT RECIEVED BLOOD ORDERED. HGB UP TO 8.0. AND HCT 24.4. PT HAPPY WITH IMPROVEMENTS. PAIN MEDS GIVEN THIS SHIFT. COMPLETE RELIEVE NOTED. PT ON AIR LOSS MATTRESS. DTR TA BEDSIDE THIS SHIFT. CALL LIGHT WITHIN REACH. HOURLY ROUNDINGS MADE. WILL CONTINUE TO MONITOR.
[2019-08-22 08:14] VITALS: BP 127/58
--- NOTE | 2019-08-22 11:30 | NUR ---
MET WITH PT TO DISCUSS HOME SITUATION/DC PLANNING. PT AND SISTER/RADHA LIVE TOGETHER. PT IS NORMALLY FAIRLY INDEPENDENT BUT STATES THE LAST COUPLE WEEKS BECOMING WEAKER AND USING HER OXYGEN MORE. PT USES STAIRGLIDE, NEB AND O2 THRU [facility]. HASN'T HAD HH OR BEEN TO SNF. IS OPEN TO EITHER. ANTICIPATES TESTING SOON, UNSURE OF DC NEEDS AT THIS TIME. WILL FOLLOW AND ASSIST
--- NOTE | 2019-08-22 12:50 | NUR ---
Nutrition: Pt assessed for low BMI. Admitted with possible GIB. 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 RUQ abd pain after eating, also constipation. H/o COPD. Albumin 3.2. Wt is usually 86-90# range, currently 89#. No wt changes. Regular diet ordered. Hopeful for improved po intake in a timely manner. Consider Mild to low risk.
[2019-08-22 14:00] LABS: MAGNESIUM 1.8 mg/dL (1.8-2.4)
[2019-08-22 14:02] LABS: POTASSIUM 2.7 mmol/L (3.5-5.1)
[2019-08-22 16:00] VITALS: BP 112/54
--- NOTE | 2019-08-22 16:25 | 2DMMODE ---
[place] [address] 2 D/M-MODE ECHOCARDIOGRAM Name: KATE ANTONY Room: [address] IN M.R.#: [id number] Admission: 08/21/19 Attend Phys: Neel Montoya Discharge: Date of : 41 Date of Service: 08/22/19 1624 Report #: [id number] THIS REPORT FOR: cc: Fransico Ross,Fransico Perez,Bayron Mo MD [facility] ~ APPROVED REPORT Study performed: 08/22/2019 14:55:23 EXAM: Comprehensive 2D, Doppler, and color-flow Echocardiogram Patient Location: Out-Patient BSA: 1.34 HR: 68 bpm BP: 127/58 mmHg Other Information Study Quality: Good Indications Pulmonary Hypertension 2D Dimensions IVSd: 9.08 (7-11mm) LVOT Diam: 19.05 (18-24mm) LVDd: 46.34 mm PWd: 9.30 (7-11mm) Ascending Ao: 28.03 (22-36mm) LVDs: 26.30 (25-40mm) Aortic Root: 23.80 mm Volumes Left Atrial Volume (Systole) LA ESV Index: 19.40 mL/m2 Aortic Valve AoV Peak Mike.: 1.60 m/s AO Peak Gr.: 10.18 mmHg LVOT Max P.01 mmHg AO Mean Gr.: 4.23 mmHg LVOT Mean P.16 mmHg LVOT Max V: 1.66 m/s AO V2 VTI: 25.00 cm LVOT Mean V: 0.91 m/s JOSEPHINE (VTI): 3.01 cm2 LVOT V1 VTI: 26.37 cm Mitral Valve E/A Ratio: 0.95 [place] [address] 2 D/M-MODE ECHOCARDIOGRAM Name: KATE ANTONY Room: [address] IN ..#: [id number] Admission: 08/21/19 Attend Phys: Neel Montoya Discharge: Date of : 41 Date of Service: 08/22/19 1624 Report #: [id number] MV Decel. Time: 213.41 ms MV E Max Mike.: 0.89 m/s MV PHT: 61.89 ms MVA (PHT): 3.55 cm2 TDI E/Lateral E': 8.90 E/Medial E': 8.90 Medial E' Mike.: 0.10 m/s Lateral E' Mike.: 0.10 m/s Pulmonary Valve PV Peak Mike.: 0.97 m/s PV Peak Gr.: 3.79 mmHg Tricuspid Valve RAP Estimate: 5.00 mmHg TR Peak Gr.: 31.61 mmHg RVSP: 36.61 mmHg PA Pressure: 36.61 mmHg Left Ventricle The left ventricle is normal size. There is normal LV segmental wall motion. There is normal left ventricular wall thickness. Left ventricular systolic function is normal. The left ventricular ejection fraction is within the normal range. LVEF is 65%. Grade I - abnormal relaxation pattern. Right Ventricle The right ventricle is normal size. The right ventricular systolic function is normal. Atria Left atrium is mildly dilated. Right atrium is mildly dilated. Aortic Valve The aortic valve is normal in structure. No aortic regurgitation is present. There is no aortic valvular stenosis. Mitral Valve The mitral valve is normal in structure. Trace mitral regurgitation. No evidence of mitral valve stenosis. Tricuspid Valve The tricuspid valve is normal in structure. Mild tricuspid [place]urgitation[place] [address] 2 D/M-MODE ECHOCARDIOGRAM Name: KATE ANTONY Room: [address]#: [id number] Admission: 08/21/19 Attend Phys: Neel Montoya Discharge: Date of : 41 Date of Service: 08/22/19 1624 Report #: [id number] The pulmonary valve is normal in structure. Mild to moderate pulmonic regurgitation. Great Vessels The aortic root is normal in size. IVC is dilated and collapses <50% with inspiration. Pericardium There is no pericardial effusion. <Conclusion> The left ventricle is normal size. There is normal left ventricular wall thickness. Left ventricular systolic function is normal. The left ventricular ejection fraction is within the normal range. LVEF is 65%. Grade I - abnormal relaxation pattern. The right ventricle is normal size. Left atrium is mildly dilated. Right atrium is mildly dilated. The aortic valve is normal in structure. No aortic regurgitation is present. There is no aortic valvular stenosis. The mitral valve is normal in structure. Trace mitral regurgitation. The tricuspid valve is normal in structure. Mild tricuspid regurgitation. IVC is dilated and collapses <50% with inspiration. There is no pericardial effusion. There is normal LV segmental wall motion. <ELECTRONICALLY SIGNED> By: Bayron Calhoun MD, FACC 08/22/19 1624 1624 1624 Bayron Calhoun MD, FACC /INF
--- NOTE | 2019-08-22 18:22 | NUR ---
PT A&OX4 VSS. PT UP SBA TO BEDSIDE COMMODE. IV TO RFA AND LAC PATENT AND SALINE LOCKED. PT ON LOW AIRLOSS MATTRESS. PO POTASSIUM CONTINUED THIS SHIFT. CRITICAL LAB VALUE REPORTED TO DR LAW AND ADDITIONAL K+ DOSES ORDERED. PT RESTS IN ROOM WITH CALL LIGHT IN REACH. LIDOCAINE PATCH APPLIED TO SACCRUM FOR PAIN RELIEF. WILL CONTINUE TO MONITOR
[2019-08-22 19:50] VITALS: BP 118/50
--- NOTE | 2019-08-23 06:21 | NUR ---
PT ALERT AND ORIENTED. VSS ON 2L. MEDS GIVEN PER EMAR. PAIN MEDS GIVEN THIS SHIFT. DTR AT BEDSIDE THIS SHIFT. PT TO BEDSIDE COMMODE THIS SHIFT. RT ORDERED. CALL LIGHT WITHIN REACH. HOURLY ROUNDINGS MADE. WILL CONTINUE TO MONITOR.
[2019-08-23 07:44] VITALS: BP 116/51
[2019-08-23 10:06] LABS: NUCLEATED RBCS 0 /100WBC
[2019-08-23 10:07] LABS: HEMATOCRIT 23.2 % (37.0-47.0); HEMOGLOBIN 7.4 gm/dL (12.0-15.0); MCH 22.5 pg (26.0-34.0); MCV 70.3 fL (80.0-100.0); MPV 9.4 fl. (7.2-11.1); PLATELET COUNT* 372 thou/uL (150-400); RDW-CV 29.4 % (10.5-14.5); WBC 6.9 thou/uL (4.0-11.0)
[2019-08-23 10:13] LABS: CREATININE 0.6 mg/dL (0.6-1.3); MAGNESIUM 1.8 mg/dL (1.8-2.4)
[2019-08-23 10:55] LABS: ABSOLUTE MONOCYTES 0.3 thou/uL (0.0-1.2); ABSOLUTE NEUTROPHILS 5.6 thou/uL (1.6-8.1); ANISOCYTOSIS 3+; PLATELET ESTIMATE ADEQUATE
[2019-08-23 10:56] LABS: HYPOCHROMASIA 2+; MICROCYTES 2+
[2019-08-23 12:05] LABS: HEMATOCRIT 21.6 % (37.0-47.0); HEMOGLOBIN 7.1 gm/dL (12.0-15.0); MCV 69.6 fL (80.0-100.0); MPV 6.9 fl. (7.2-11.1); RBC 3.11 mil/uL (4.20-5.00); RDW-CV 29.6 % (10.5-14.5); WBC 7.5 thou/uL (4.0-11.0)
[2019-08-23 16:00] VITALS: BP 108/42; BP 131/44
--- NOTE | 2019-08-23 20:11 | EKG ---
[place] [address] ELECTROCARDIOGRAM REPORT Name: KATE ANTONY Room: [address] ADM IN .R.#: [id number] Admission: 08/21/19 Attend Phys: Neel Montoya Discharge: Date of : 41 Date of Service: 08/23/19 1349 Report #: [id number] THIS REPORT FOR: //name// [facility] Test Date: 2019-08-23 Test Time: 13:49:55 Pat Name: KATE ANTONY Department: Room: [address] Gender: F Ping Pong Table Assembler: MICHELLE : 1945 Requested By: Leopoldo Chong Order Number: [id number] Sylvester MD: Justin Garcia Measurements Intervals [place] Rate: 75 P: 82 MO: 167 QRS: 96 QRSD: 160 T: 61 QT: 443 QTc: 495 Interpretive Statements Sinus rhythm Probable left atrial enlargement RBBB Compared to ECG 11/14/2018 08:16:08 No significant changes Electronically Signed On 08-23-2019 20:10:47 ENVIRONMENTAL STUDIES PROFESSOR by Justin Garcia [email or web address] <ELECTRONICALLY SIGNED> By: Justin Garcia MD, FACC 08/23/192009 1349 1349 Justin Garcia MD, FAC /EPI
[2019-08-23 20:15] VITALS: BP 132/69
--- NOTE | 2019-08-23 21:15 | NUR ---
I ASSUMED CARE OF THE PATIENT AT 0700. SHE IS ALERT AND ORIENTED X4 AND IS UP WITH STANDBY ASSIST. BED IS IN THE LOW LOCKED POSITION AND CALL LIGHT IS IN REACH. HOURLY ROUNDING IS COMPLETED AND PATIENT NEEDS ARE MET. PAIN IS MANAGED WITH PRN MEDS, BUT SHE IS EASILY NAUSEAD, SO WE LEARNED TO GIVE PHENERGAN FIRST. SHE HAS REQUESTED A KPAD AND A WAFFLE CUSHION. SHE WILL BE NPO AT MIDNIGHT FOR AN EGD TOMORROW. CONSENT IS ON THE CHART. SHE HAD A BM TODAY AND FAMILY IS AT THE BEDSIDE ALL DAY. WILL CONTINUE TO MONITOR.
--- NOTE | 2019-08-24 04:59 | NUR ---
PT RESTED WELL THROUGHOUT HORLY ROUNDS , PAIN MEDICATION AND NAUSEA MEDICATION GIVEN REQUESTED, NO ACTIVE VOMITING NOTED, PT RESTED WELL THROUGHOUT HOURLY ROUNDS, WILL CONITNUE WITH CURRENT PLAN OF CARE AND WILL REPORT CHANGES. DAUGHTER REMAIN AT BEDSIDE.
[2019-08-24 06:08] LABS: HEMOGLOBIN 7.6 gm/dL (12.0-15.0); NUCLEATED RBCS 0 /100WBC; WBC 6.5 thou/uL (4.0-11.0)
[2019-08-24 06:11] LABS: HEMATOCRIT 23.4 % (37.0-47.0); MCHC 32.6 g/dL (28.0-37.0); MCV 70.5 fL (80.0-100.0); MPV 7.7 fl. (7.2-11.1); PLATELET COUNT* 382 thou/uL (150-400); RBC 3.31 mil/uL (4.20-5.00); RDW-CV 29.9 % (10.5-14.5)
[2019-08-24 06:16] LABS: CALCIUM 8.4 mg/dL (8.5-10.1); CREATININE 0.6 mg/dL (0.6-1.3); POTASSIUM 4.3 mmol/L (3.5-5.1)
[2019-08-24 07:22] LABS: ABSOLUTE LYMPHOCYTES 0.9 thou/uL (0.8-5.3); ABSOLUTE MONOCYTES 0.7 thou/uL (0.0-1.2); ABSOLUTE NEUTROPHILS 4.9 thou/uL (1.6-8.1); ATYPICAL LYMPHS 2 %
[2019-08-24 07:23] LABS: ANISOCYTOSIS 3+; BURR CELLS 1+; HYPOCHROMASIA 3+; PLATELET ESTIMATE ADEQUATE
[2019-08-24 07:24] LABS: SCHISTOCYTES 1+
[2019-08-24 07:40] VITALS: BP 109/48
[2019-08-24 16:00] VITALS: BP 121/56
--- NOTE | 2019-08-24 19:49 | NUR ---
PT ALERT AND ORIENTED. PT SEEMED FORGETFUL. VSS ON 2L. MEDS GIVEN PER EMAR. PT ATE BANANA THIS AM. EGD WAS CANCELLED. PT TO BE NPO AFTER MIDNIGHT FOR EGD TOMORROW. STB ASSIST. CALL LIGHT WITHIN REACH. HOURLY ROUNDINGS MADE. WILL CONTINUE TO MONITOR.
[2019-08-24 21:30] VITALS: BP 127/45
[2019-08-25 04:38] LABS: CREATININE 0.5 mg/dL (0.6-1.3); POTASSIUM 4.5 mmol/L (3.5-5.1)
[2019-08-25 04:52] LABS: HEMOGLOBIN 7.3 gm/dL (12.0-15.0); MCV 70.8 fL (80.0-100.0)
[2019-08-25 04:53] LABS: ABSOLUTE BASOPHILS 0.1 thou/uL (0.0-0.2); ABSOLUTE EOSINOPHILS 0.1 thou/uL (0.0-0.7); ABSOLUTE LYMPHOCYTES 1.4 thou/uL (0.8-5.3); ABSOLUTE MONOCYTES 0.5 thou/uL (0.0-1.2); ABSOLUTE NEUTROPHILS 4.2 thou/uL (1.6-8.1); EOSINOPHILS 1.5 %; HEMATOCRIT 22.6 % (37.0-47.0); LYMPHOCYTES 22.7 %; MCH 22.8 pg (26.0-34.0); MCHC 32.2 g/dL (28.0-37.0); MPV 8.1 fl. (7.2-11.1); NUCLEATED RBCS 0 /100WBC; PLATELET COUNT* 378 thou/uL (150-400); POLYS 66.8 %; RDW-CV 30.6 % (10.5-14.5); WBC 6.3 thou/uL (4.0-11.0)
--- NOTE | 2019-08-25 05:42 | NUR ---
PATIENT SLEPT MOST OF THE NIGHT. NEW IV WAS STARTED CHARTED. PATIENT HAS BEEN NPO SINCE MIDNIGHT FOR AN EGD TODAY. PATIENT WAS GIVEN PAIN MEDICINE ONCE THIS SHIFT. WILL CONTINUE TO MONITOR.
[2019-08-25 08:30] VITALS: BP 116/49
--- NOTE | 2019-08-25 09:14 | NUR ---
I have reviewed the documentation by RICHARD TORRES from 08/24/19 to 08/24/19 and I concur with it. CHEPE ROJAS
[2019-08-25 15:58] VITALS: BP 116/49
[2019-08-25] MEDS ORDERED: B-125000 MC1 SUBLING (17:05)
[2019-08-25] MEDS ORDERED: LIDODERM1 EACH TOP (17:11)
--- NOTE | 2019-08-25 18:23 | NUR ---
I ASSUMED CARE OF THE PATIENT AT 0700. SHE IS ALERT AND ORIENTED X4 AND IS UP AD MOOSE. FAMILY IS AT THE BEDSIDE. BED IS IN THE LOW LOCKED POSITION AND CALL LIGHT IS IN REACH. HOURLY ROUNDING IS COMPLETED AND PATIENT NEEDS ARE MET. PAIN IS DENIED. AFTER EGD, DIET WAS ADVANCED AND TOLERATED WELL. SHE WAS DISCHARGED TO HOME WITH HER DAUGHTER AT 1730. FOLLOW UPS WERE EXPLAINED AND MEDS ARE UNDERSTOOD. IV WAS D/C'D.
--- NOTE | 2019-08-29 18:15 | CON ---
[address] [address] CONSULTATION Name: KATE ANTONY Room: [address] IN M.R.#: [id number] Admission: 08/21/19 Attend Phys: Cooper Miller Discharge: 08/25/19 Date of : 41 Report #: [id number] THIS REPORT FOR: //name// cc: Fransico Ross Vincent R. DO ~ THIS REPORT FOR: //name// CC: Fransico Martin DICTATED BY: Emerita Rob [facility] Please note at the time of this dictation, the patient was seen and physically examined by myself. REASON FOR CONSULTATION: Acute anemia and dysphagia. HISTORY OF PRESENT ILLNESS: This is a pleasant 74-year-old female who presented to the Emergency Room with worsening of her shortness of breath over the past week, increased weakness, lightheadedness and dizziness with standing. The patient states she felt like she was going to faint over the past several days. She also complained of a little bit of bloating and fullness after eating. She denied any nausea, but did vomit a few time, negative for any hematemesis. She has been reporting constipation with her last bowel movement being yesterday, it was very hard and dry, but no evidence of any bright red blood. She states her normal bowel habits are every 2-3 days. She had been taking some magnesium for that, but that was upsetting her stomach, so she quit taking it. The patient also states that she quit taking her iron some time back as well, she does not recall when. She did get her lab records in May, but she was waiting until she saw her primary to get blood work done, which was going to be next week. The patient was last seen by us in August of last year for her anemia. She underwent an EGD that showed Tete esophagitis and a hiatal hernia. She underwent a colonoscopy that showed tubular adenoma polyps that were in the transverse colon, diverticulosis and she had angioectasias in the cecum. She also then underwent a small bowel capsule that showed mid diverticulum in the duodenum as well as cecal AVMs were noted. ALLERGIES: INCLUDE BUDESONIDE, SYMBICORT, RYTHMOL, BACLOFEN, LEVAQUIN, MORPHINE, PHENOTHIAZINES, PROCHLORPERAZINES, SULFA, BACTRIM, SPIRIVA, STADOL, VICODIN AND COMPAZINE. MEDICATIONS: From home include magnesium, potassium, Tambocor, thyroid, levothyroxine, Cardizem, DuoNeb, ProAir, Flovent, Daliresp, Xarelto, Tylenol, Lasix, Singulair and prednisone. PAST MEDICAL HISTORY: Atrial fibrillation, Meniere[place] [address] CONSULTATION Name: LOIS ANTONYE LEESA Room: [address] IN .R.#: [id number] Admission: 08/21/19 Attend Phys: Cooper Miller Discharge: 08/25/19 Date of : 41 Report #: [id number] PAST SURGICAL HISTORY: Right inguinal hernia, hysterectomy and appendectomy. FAMILY HISTORY: Noncontributory. SOCIAL HISTORY: Does tobacco use. Denies any alcohol or any other illegal drug use. REVIEW OF SYSTEMS: Twelve-point review of systems is essentially negative except what is mentioned in the HPI. PHYSICAL EXAMINATION: VITAL SIGNS: Temperature 36.4, pulse 68, respirations 18 and blood pressure 127/58. HEART: Regular rate and rhythm. LUNGS: Diminished, but clear. ABDOMEN: Soft, positive bowel sounds in all 4 quadrants with no masses or tenderness noted. LABORATORY DATA: Hemoglobin was 5.1 on admission. She got 2 units of blood, she is up to 8 and feeling much better, white count is 9.1, platelets 411. Potassium was low at 2.7 on admission, is being replaced. Iron was 17, TIBC is 429 and percentage sat was only 4. Her GFR is 97. IMPRESSION: 1. Acute anemia. 2. Weakness. 3. Dysphagia all the time for the past month. History of Tete esophagitis. 4. Constipation, chronic. 5. Chronic obstructive pulmonary disease, currently on O2. 6. Anticoagulant therapy, Xarelto for atrial fibrillation. PLAN: 1. Transfuse to keep her hemoglobin greater than 7. 2. We will consult Hematology for iron infusions. 3. We will start her on senna with Colace b.i.d. 4. Further recommendations to be made once Dr. Chong sees the patient later today. Thank you for allowing us to participate in this patient's care. Please do not hesitate to call with any questions in regard to this consult. <ELECTRONICALLY SIGNED> By: Leopoldo Chong DO 08/29/19 1815 1237 [id number] Chong DO /nt
== END 2019-08-25 17:35 | disposition home or self-care (01) | DRG 812 ==
LOC: M.ERS 13:02 → M.TBA-ER 14:56 → M.3W 14:56
PROVIDERS: Internal Medicine; Internal Medicine Gastroenterology; Personal Emergency Response Attendant; ADMIT Internal Medicine
PROC: 30233N1 Transfusion of Nonautologous Red Blood Cells into Peripheral Vein, Percutaneous Approach (ICD-10-PCS; principal; 2019-08-21)
PROC: 0DJ08ZZ Inspection of Upper Intestinal Tract, Via Natural or Artificial Opening Endoscopic (ICD-10-PCS; 2019-08-25)
DX: D50.9 Iron deficiency anemia, unspecified (principal); B37.0 Candidal stomatitis; J44.1 Chronic obstructive pulmonary disease with (acute) exacerbation; E03.9 Hypothyroidism, unspecified; E83.42 Hypomagnesemia; E87.6 Hypokalemia; F17.210 Nicotine dependence, cigarettes, uncomplicated; K59.09 Other constipation; K57.30 Diverticulosis of large intestine without perforation or abscess without bleeding; I48.91 Unspecified atrial fibrillation; M54.89 Other dorsalgia; K44.9 Diaphragmatic hernia without obstruction or gangrene; R13.10 Dysphagia, unspecified; D52.9 Folate deficiency anemia, unspecified; H81.02 Meniere's disease, left ear; R00.2 Palpitations; Z99.81 Dependence on supplemental oxygen; Z90.49 Acquired absence of other specified parts of digestive tract; Z90.710 Acquired absence of both cervix and uterus; Z79.899 Other long term (current) drug therapy; Z88.1 Allergy status to other antibiotic agents; Z88.5 Allergy status to narcotic agent; Z88.2 Allergy status to sulfonamides; Z88.8 Allergy status to other drugs, medicaments and biological substances; Z79.01 Long term (current) use of anticoagulants; Z98.82 Breast implant status; Z98.42 Cataract extraction status, left eye; Z98.41 Cataract extraction status, right eye; Z87.01 Personal history of pneumonia (recurrent); Z86.010 Personal history of colon polyps; Z82.49 Family history of ischemic heart disease and other diseases of the circulatory system

== ENCOUNTER → 2019-09-20 | Outpatient (CLI) | payer MEDICARE ==
[~2019-09-20] VITALS: Ht 154.9 cm; Wt 39.9 kg
[~2019-09-20] MED LIST changes: +ACETAMINOPHEN500 M1 PO; +B-125000 MC1 SUBLING; +DALIRESP500 MCG PO; +FLOVENT DISKU250 MCG INH; +LIDODERM1 EACH TOP; +SERTRALINE HCL100 MG PO; +SERTRALINE HCL25 MG PO
[2019-09-20 14:15] VITALS: BP 153/72
--- NOTE | 2019-09-20 15:23 | NUR ---
PATIENT COMPLAINED OF SHORTNESS OF BREATH IMMEDIATELY AFTER BEGINNING FERAHEME IV INFUSION. INFUSION STOPPED O2 AT 2 LITERS ADMINISTERED. PATIENT COMPLAINED OF SEVERE DIFFICULTY BREATHING. RAPID RESPONSE CALLED. RESPIRATORY AND NURSING SUPERVISORS ARRIVED. NON-REBREATHER MASK APPLIED. REMAINING FERAHEMNE WITHDRAWN FROM SALINE LOCK WITH 5ML OF BLOOD. LINE FLUSHED AND LOCKED. PATIENT BLOOD PRESSURE OBTAINED WITH O2 SAT AT 96%, BLOOD PRESSURE= 145/83, HR=99 BPM. PATIENT ALERT AND ORIENTED, MUCH EMOTIONAL REASSUREANCE GIVEN. PATIENT TRANSPORTED TO ER PER NURSING CREDIT INVESTIGATOR. DR NGUYEN NOTIFIED BY ER PHYSICIAN DR ZELAYA.
== END ==
LOC: M.INFUS 12:00 → M.ERS 12:07
DX: D50.9 Iron deficiency anemia, unspecified (principal)

== ENCOUNTER 2019-12-30 16:12 | Observation (INO) | payer MEDICARE ==
[~2019-12-30] VITALS: Ht 154.9 cm; Wt 41.3 kg
[2019-12-30 16:18] VITALS: BP 188/81
[2019-12-30 16:48] LABS: ABSOLUTE BASOPHILS 0.1 thou/uL (0.0-0.2); ABSOLUTE EOSINOPHILS 0.1 thou/uL (0.0-0.7); ABSOLUTE LYMPHOCYTES 1.6 thou/uL (0.8-5.3); ABSOLUTE MONOCYTES 0.6 thou/uL (0.0-1.2); ABSOLUTE NEUTROPHILS 4.1 thou/uL (1.6-8.1); BASOPHILS 1.4 %; EOSINOPHILS 1.8 %; LYMPHOCYTES 24.1 %; MCH 29.5 pg (26.0-34.0); MCHC 34.3 g/dL (28.0-37.0); MCV 85.9 fL (80.0-100.0); MPV 7.4 fl. (7.2-11.1); NUCLEATED RBCS 0 /100WBC; PLATELET COUNT* 362 thou/uL (150-400); POLYS 63.7 %; RBC 3.73 mil/uL (4.20-5.00); WBC 6.5 thou/uL (4.0-11.0)
[2019-12-30 17:01] LABS: CALCIUM 8.4 mg/dL (8.5-10.1); CREATININE 0.6 mg/dL (0.6-1.3); POTASSIUM 3.4 mmol/L (3.5-5.1)
[2019-12-30 17:02] LABS: APTT 25.8 Seconds (25.0-31.3); INR 0.9; PROTIME 9.7 Seconds (9.20-11.50)
[2019-12-30 17:12] LABS: ALBUMIN 3.4 g/dL (3.4-5.0); TOTAL BILIRUBIN 0.2 mg/dL (<0.1-1.0); TOTAL PROTEIN 6.1 g/dL (6.4-8.2)
[2019-12-30 19:04] LABS: URINE BILIRUBIN NEGATIVE (Negative); URINE BLOOD NEGATIVE (Negative); URINE CLARITY CLEAR; URINE COLOR YELLOW; URINE GLUCOSE-RANDOM NEGATIVE (Negative); URINE KETONES NEGATIVE (Negative); URINE LEUKOCYTES-REFLEX NEGATIVE (Negative); URINE NITRITE-REFLEX NEGATIVE (Negative); URINE PROTEIN NEGATIVE (Negative); URINE SPECIFIC GRAVITY 1.015 (1.005-1.030); URINE UROBILINOGEN 0.2 E.U./dl (0.2-1.0)
[2019-12-30 20:15] VITALS: BP 104/48
--- NOTE | 2019-12-30 20:20 | NUR ---
NOTIFIED DAUGHTER (RENETTA TANNER) RE: ADMISSION [phone]
--- NOTE | 2019-12-30 20:25 | NUR ---
PT ADMITTED TO FLOOR PER WHEELCHAIR ACCOMPANIED BY ER STAFF WITH BELONGINGS. ORIENTED TO ROOM AND CALL LITE. HISTORY OBTAINED AND ASSESSMENT PERFORMED, SEE ADMIT NOTES. O2 2L NC. AOX4. DENIES PAIN OR PROBLEMS AT PRESENT. SNACK GIVEN PER PT REQUEST. WILL MESSAGE DR FOR HOME MED ORDERS. CALL LITE IN EASY REACH, WILL CONTINUE TO MONITOR AND PROVIDE CARES NEEDED.
[2019-12-30 20:30] VITALS: BP 135/66
--- NOTE | 2019-12-31 05:59 | NUR ---
PT SLEPT OFF AND ON OVERNIGHT WITHOUT COMPLAINTS. O2 2L NC SATS MID 90'S. L FA IV SL, SOLUMEDROL GIVEN ORDERED. RECEIVING RT TX SCHEDULED. UP AD MOOSE IN ROOM TO BR TO VOID WITHOUT DIFFICULTY. AOX4, PLEASANT, ABLE TO USE CALL LITE AND MAKE NEEDS KNOWN.
[2019-12-31 07:50] VITALS: BP 132/57
[2019-12-31] MEDS ORDERED: PREDNISONE 10 M10 M1 PO (10:11)
[2019-12-31] MEDS ORDERED: AZITHROMYCIN500 MG PO (10:11)
[2019-12-31 11:05] VITALS: BP 132/57
--- NOTE | 2019-12-31 12:04 | NUR ---
PATIENT SEEN BY DR. EVANGELISTA THIS AM AND DISCHARGED TO HOME. IV ABX RECEIVED, PER DR. EVANGELISTA OK FOR PATIENT TO JUST TAKE PO AZITHROMYCIN. IV DC'D. PATIENT UP AND AMBULATING WITHOUT DIFFICULTY. STANDBY 02 AT HOME. VERBALIZES UNDERSTANDING OF PAPERWORK, SCRIPT SENT TO PREFFERED PHARMACY. PATIENT AMBULATED OUT WITH STAFF AND ALL BELONGINGS.
--- NOTE | 2020-01-01 07:36 | EKG ---
[place] [address] ELECTROCARDIOGRAM REPORT Name: ARPANKATE LEESA Room: [address] M.R.#: [id number] Admission: 12/30/19 Attend Phys: Neel Montoya Discharge: 12/31/19 Date of : 41 Date of Service: 12/30/19 1629 Report #: [id number] THIS REPORT FOR: //name// [facility] ED Test Date: 2019-12-30 Test Time: 16:29:05 Pat Name: KATE ANTONY Department: Room: [facility] Gender: F Invasive Cardiovascular Technologist: AAMIR : 1945 Requested By: Dom Corley Order Number: [id number] MD: Justin Garcia Measurements Intervals [place] Rate: 92 P: 88 PA: 150 QRS: 101 QRSD: 147 T: 57 QT: 373 QTc: 462 Interpretive Statements Sinus rhythm Probable left atrial enlargement RBBB and LPFB Baseline wander in lead(s) II,III,aVF Compared to ECG 08/23/2019 13:49:55 Left posterior fascicular block now present Electronically Signed On 01-01-2020 7:36:08 CDT by Justin Garcia [email or web address] <ELECTRONICALLY SIGNED> By: Justin Garcia MD, [facility] 01/01/20 0736 1629 1629 Justin Garcia MD, [facility] /EPI
== END 2019-12-31 11:30 | disposition home or self-care (01) ==
LOC: M.ERS 16:12 → M.TBA-ER 18:18 → M.3W 20:16
PROVIDERS: Emergency Medicine Emergency Medical Services; ADMIT Internal Medicine; ATTEND Internal Medicine
DX: J43.8 Other emphysema (principal); J96.11 Chronic respiratory failure with hypoxia; D63.8 Anemia in other chronic diseases classified elsewhere; F32.9 Major depressive disorder, single episode, unspecified; D68.69 Other thrombophilia; F17.210 Nicotine dependence, cigarettes, uncomplicated

== ENCOUNTER → 2020-12-07 | Outpatient (CLI) | payer MEDICARE ==
[~2020-12-07] MED LIST changes: +AZITHROMYCIN500 MG PO; +PREDNISONE 10 M10 M1 PO
--- NOTE | 2020-12-18 08:35 | SLEEP ---
[place] [address] SLEEP STUDY REPORT Name: KATE ANTONY Room: [facility].#: [id number] Admission: 12/07/20 Attend Phys: Jaxson Toscano Discharge: Date of : 41 Report #: [id number] THIS REPORT FOR: cc: Fransico Ross Vincent R. DO Pervez, Adeel MD ~ DOC #: [id number] Claude Grayson MD DATE OF STUDY: 12/07/2020 SLEEP STUDY INDICATION FOR SLEEP STUDY: Daytime fatigue with snoring and a history of chronic obstructive pulmonary disease. INTERPRETATION: Total duration of the study is 297 minutes, out of which she was asleep for 174 minutes with an overall sleep efficiency of 58.7%, which is decreased. Sleep onset initially occurred around 8 minutes after lying down in bed and REM onset was rapid, occurring 5.5 minutes after sleep onset. N1 sleep duration is 18%, N2 duration is 37%, N3 duration is 3% and REM duration is 42.2%. Body position data indicates that the patient is observed asleep in the supine position for 19.3 minutes. The rest of the time the patient is on other positions. Mean heart rate was 75. Periodic limb movement index is normal at 7.2. Arousal index is essentially normal at 10.7. We did record several sleep-related respiratory events. These included 1 obstructive apnea, 5 hypopneas and 1 respiratory effort related arousal. Overall apnea-hypopnea index is 2.1. O2 saturation is also adequately maintained during the sleep study and remains at or above 90%. IMPRESSION: 1. Occasional sleep-related respiratory events recorded. Overall apnea-hypopnea index is normal at 2.1. O2 saturation is also adequately maintained during this sleep study. 2. Reduction in sleep efficiency to 58.7% as above is noted. 2. Onset of REM only 5.5 minutes after sleep onset is noted. RECOMMENDATIONS: 1. Recommend clinical correlation for further evaluation and treatment of her sleep complaints. 2. Recommend avoiding driving or other activities requiring vigilance if drowsy. This entire sleep study was reviewed by [place] [address] SLEEP STUDY REPORT Name: KATE ANTONY Room: [facility]#: [id number] Admission: 12/07/20 Attend Phys: Jaxson Toscano Discharge: Date of : 41 Report #: [id number] MD JAG Kidd/PATRICK/EBENEZER <ELECTRONICALLY SIGNED> By: Claude Grayson MD 12/18/20 0835 [id number] rachel Browne
== END ==
LOC: M.SLEEPLAB 20:50
PROVIDERS: ATTEND Internal Medicine Pulmonary Disease
DX: J96.21 Acute and chronic respiratory failure with hypoxia (principal); G47.9 Sleep disorder, unspecified